=== PATIENT | female | born 1990 | race Caucasian/White ===

== ENCOUNTER 2021-06-20 23:21 | Emergency (ER) | payer BC, SELFPAY ==
[2021-06-20] MEDS ORDERED: LIDOCAINE 1% MPF 2 ML AMPULE ONE (23:50)
[2021-06-20] MEDS ORDERED: MORPHINE 4 MG/ML SYR ONE (23:51)
[2021-06-20] MEDS ORDERED: CEFTRIAXONE 1000 MG/VIAL ONE (23:51)
--- NOTE | 2021-06-21 00:47 | EDPHYS ---
Physician Documentation [facility] Name: Teressa Lopez Age: 31 yrs Sex: Female : 1990 Arrival Date: 06/20/2021 Time: 23:23 Bed 15 Private MD: ED Physician Palomo Larry HPI: 06/20 23:35 This 31 yrs old Female presents to ER via Ambulatory with complaints of Ear jmm Pain, EAR DRAINAGE, Toothache. 23:35 The patient presents with pain. Onset: The symptoms/episode began/occurred today. jmm Modifying factors: The symptoms are alleviated by nothing, the symptoms are aggravated by nothing. Associated signs and symptoms: Pertinent positives: pain, drainage. The patient has not experienced similar symptoms in the past. 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 - Social history:: Smoking status: Patient reports the use of cigarette tobacco products, smokes one-half pack cigarettes per day. - Family history:: not pertinent. - Code Status:: Full code. ROS: 23:35 Constitutional: Negative for fever, chills, and weight loss. jmm 23:35 ENT: Positive for drainage from ear(s), ear pain. 23:35 All other systems are negative. Exam: 23:35 Head/Face: atraumatic. Eyes: EOMI, no conjunctival erythema appreciated jmm 23:35 Neck: Trachea midline, Supple Chest/axilla: Normal chest wall appearance and motion. Cardiovascular: Regular rate and rhythm. No edema appreciated Respiratory: Normal respirations, no respiratory distress appreciated Abdomen/GI: Non distended, soft Back: Normal ROM Skin: General appearance color normal 23:35 Constitutional: The patient appears alert, awake, uncomfortable. 23:35 ENT: TM's: not visable. 23:35 Musculoskeletal/extremity: ROM: intact in all extremities. 23:35 Skin: Appearance: Color: normal in color. 23:35 Neuro: Motor: is normal. 23:35 Psych: Behavior/mood is pleasant, cooperative, anxious. Vital Signs: 23:34 BP 141 / 75; Pulse 95; Resp 20; Temp 98.1; Pulse Ox 100% on R/A; Weight 81.65 kg; em Height 5 ft. 8 in. (172.72 cm); Pain 05/23; 06/21 01:00 BP 121 / 81; Pulse 76; Resp 20; Temp 98.5(O); cc4 06/20 23:34 Body Mass Index 27.37 (81.65 kg, 172.72 cm) em MDM: 06/20 23:35 Patient medically screened. [facility] 06/21 00:45 Data reviewed: vital signs, nurses notes. Counseling: I had a detailed discussion with [facility] the patient and/or guardian regarding: the historical points, exam findings, and any diagnostic results supporting the discharge/admit diagnosis, the need for outpatient follow up, to return to the emergency department if symptoms worsen or persist or if there are any questions or concerns that arise at home. ED course: Patient is alert and non toxic in appearance in the ED. Advised to follow up with ENT for further evaluation. Patient understood and agrees with the plan of care. . Administered Medications: 06/20 23:50 Drug: morphine 4 mg Route: IM; Site: right gluteus; cc4 06/21 01:00 Follow up: Response: No adverse reaction; Pain is unchanged, physician notified [facility] 06/20 23:52 Drug: Rocephin (cefTRIAXone) 1 grams Route: IM; Site: left gluteus; cc4 06/21 01:00 Follow up: BP 121 / 81; Pulse 76 bpm; Resp 20 bpm; Temp 98.5 Oral cc4 01:00 Follow up: Response: No adverse reaction [facility] Disposition: 01:16 Co-signature as Attending Physician, Palomo Larry MD. [email or web address] Disposition Summary: 06/21/21 00:47 Discharge Ordered Location: Home [facility] Condition: Stable [facility] Diagnosis - Acute Otalgia [facility] Followup: [facility] - With: Private Physician - When: 2 - 3 days - Reason: Recheck today's complaints, Continuance of care, Re-evaluation by your physician Discharge Instructions: - Discharge Summary Sheet [facility] - Earache, Adult [facility] Forms: - Medication Reconciliation Form [facility] - Thank You Letter [facility] - Antibiotic Education [facility] - Prescription Opioid Use [facility] Prescriptions: - Augmentin 875-125 mg Oral Tablet - take 1 tablet by ORAL route every 12 hours for 10 days; 20 tablet; Refills: 0, [facility] Product Selection Permitted - Cortisporin-TC 3.3-3-10-0.5 mg/mL Otic Suspension - instill 4 drops by OTIC route every 6 hours; 1 bottle; Refills: 0, Product [facility] Selection Permitted - Ibuprofen 800 mg Oral Tablet - take 1 tablet by ORAL route every 8 hours As needed take with food; 30 tablet; [facility] Refills: 0, Product Selection Permitted Signatures: Riley Graham PA PA jmm Munoz, Edgar, RN RN em Palomo Larry MD MD [email or web address] Marleni Ken RN RN cc4
--- NOTE | 2021-06-21 00:47 | ER ---
Nurse's Notes [facility] Name: Teressa Lopez Age: 31 yrs Sex: Female : 1990 Arrival Date: 06/20/2021 Time: 23:23 Bed 15 Private MD: Diagnosis: Acute Otalgia Presentation: 06/20 23:34 Chief complaint: Patient states: right ear and jaw pain that started this morning, also em reports leaking in gabo. ears, denies fever. Coronavirus screen: Vaccine status: Patient reports being unvaccinated. Ebola Screen: Patient negative for fever greater than or equal to 101.5 degrees Fahrenheit, and additional compatible Ebola Virus Disease symptoms Patient denies exposure to infectious person. Patient denies travel to an Ebola-affected area in the 21 days before illness onset. No symptoms or risks identified at this time. Initial Sepsis Screen: Does the patient meet any 2 criteria? No. Patient's initial sepsis screen is negative. Does the patient have a suspected source of infection? Yes: Other: ear. Risk Assessment: Do you want to hurt yourself or someone else? Patient reports no desire to harm self or others. Onset of symptoms was June 20, 2021. 23:34 Method Of Arrival: Ambulatory em 23:34 Acuity: MARC 4 em Triage Assessment: 23:35 General: Appears in no apparent distress. uncomfortable, Behavior is cooperative, em anxious. Pain: Complains of pain in right jaw and right ear. EENT: Ear canal swelling noted inside canal . 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 - Social history:: Smoking status: Patient reports the use of cigarette tobacco products, smokes one-half pack cigarettes per day. - Family history:: not pertinent. - Code Status:: Full code. Screenin:45 Abuse screen: Denies threats or abuse. Nutritional screening: No deficits noted. cc4 Tuberculosis screening: No symptoms or risk factors identified. Fall Risk None identified. Assessment: 23:45 General: Appears distressed, uncomfortable, Behavior is calm, cooperative. Pain: cc4 Complains of pain in right ear and right jaw Pain currently is 10 out of 10 on a pain scale. at worst was 10 out of 10 on a pain scale. Quality of pain is described as aching, tender, throbbing, Pain began 'All day" Is continuous. Neuro: No deficits noted. Level of Consciousness is awake, alert, obeys commands, Oriented to person, place, time, situation. Cardiovascular: No deficits noted. Heart tones S1 S2. Respiratory: No deficits noted. Airway is patent Breath sounds are clear bilaterally. GI: No deficits noted. No signs and/or symptoms were reported involving the gastrointestinal system. Abdomen is non-distended, Bowel sounds present X 4 quads. Abd is soft and non tender X 4 quads. : No deficits noted. No signs and/or symptoms were reported regarding the genitourinary system. EENT: Edema noted right ear with pus noted draining from right ear canal.. Derm: No deficits noted. Skin is intact. Musculoskeletal: No deficits noted. Capillary refill < 3 seconds, Range of motion: intact in all extremities. 23:50 Reassessment: No changes from previously documented assessment. Morphine 4 mg given IM; cc4 Rocephin 1 g given as ordered, mark. well. 06/21 00:16 Reassessment: No changes from previously documented assessment. Morphine 4 mg given IM cc4 RUOQ; Rocephin 1 g given IM LUOQ, mark. well. 00:30 Reassessment: Patient appears in no apparent distress at this time. Resting quietly cc4 with eyes closed; significant other sitting \\T\\ bedside; NAD. Vital Signs: 06/20 23:34 BP 141 / 75; Pulse 95; Resp 20; Temp 98.1; Pulse Ox 100% on R/A; Weight 81.65 kg; em Height 5 ft. 8 in. (172.72 cm); Pain 1010; 06/21 01:00 BP 121 / 81; Pulse 76; Resp 20; Temp 98.5(O); cc4 06/20 23:34 Body Mass Index 27.37 (81.65 kg, 172.72 cm) em ED Course: 06/20 23:23 Patient arrived in ED. cf2 23:24 Riley Graham PA is PHCP. jmm 23:24 Palomo Larry MD is Attending Physician. [facility] 23:35 Triage completed. em 23:35 Arm band placed on. em 23:45 Patient has correct armband on for positive identification. Bed in low position. Call cc4 light in reach. Side rails up X2. 23:49 Marleni Ken, RN is Primary Nurse. cc4 06/21 01:00 No provider procedures requiring assistance completed. cc4 01:00 Patient did not have IV access during this emergency room visit. cc4 Administered Medications: 06/20 23:50 Drug: morphine 4 mg Route: IM; Site: right gluteus; cc4 06/21 01:00 Follow up: Response: No adverse reaction; Pain is unchanged, physician notified cc4 06/20 23:52 Drug: Rocephin (cefTRIAXone) 1 grams Route: IM; Site: left gluteus; cc4 06/21 01:00 Follow up: BP 121 / 81; Pulse 76 bpm; Resp 20 bpm; Temp 98.5 Oral cc4 01:00 Follow up: Response: No adverse reaction cc4 Outcome: 00:47 Discharge ordered by . [facility] 01:00 Discharged to home with significant other. cc4 01:00 Condition: stable 01:00 Discharge instructions given to patient, Instructed on discharge instructions, follow up and referral plans. medication usage, Demonstrated understanding of instructions, follow-up care, medications. 01:05 Patient left the ED. cc4 Signatures: Riley Graham PA PA jmm Munoz, Edgar, RN KETURAH Mansoor aMnn 2 Marleni Ken, KETURAH RN [facility]
[2021-06-21 01:35] VITALS: BP 141/75; TEMP 98.1; O2SAT 100
--- OUTSIDE RECORDS SUMMARY | 2021-06-26 16:03 | XMS REPORT | Continuity of Care Document ---
:1990 Author Organization [facility] t Address [address] [place] [address] Care Team Providers Name Role Phone PCP, PATIENT DOES NOT HAVE A Primary Care Physician Unavaila ble HEAD, S Attending Clinician Unavailable Head PAC, S Attending Clinician Doctor Unassigned, Name Attending Clinician Unavailable Jony REBOLLAR Attending Clinician Unavailable Caden PARR Attending Clinician Payers Payer Name Policy Type Policy Number Effective Date Expiration Date S ource Advance Directives Directive Decision Effective Termination Comments Source Date Date Healthcare Agents on N/A Univ ersity FileNameRelationshipHealthcare of [place] Agent Medical RelationshipCommunicationSMuhlenberg Community [facility] UribeSiSt[facility] Care [phone] (Mobile) Problems Condition Condition Condition Status Onset Resolution Last Treating Co mments Source Name Details Category Date Date Treatment Clinician Date Cervical Cervical Disease Active Unive rs high risk high risk 3-30 ity of human human 00:00: [place] papillomav papillomav 00 Me dical irus (HPV) irus (HPV) Br anch DNA test DNA test positive positive Atypical Atypical Disease Active Overview: Un leslie squamous squamous 3-29 Formattin ity of cell cell 00:00: g of this [place] changes of changes of 00 note Me dical undetermin undetermin might be Branch ed ed different significan significan from the ce (ASCUS) ce (ASCUS) original. on vaginal on vaginal ASCUS on cytology cytology 10/2017 pap smear, awaiting HPV results. Overweight Overweight Disease Active U nivers 3-22 ity of 00:00: [place] 00 Medical Branch BMI BMI Disease Active Univers 27.0-27.9, 27.0-27.9, 3-22 it y of adult adult 00:00: [place] [facility] Disease Active U nivers care and care and 3-06 ity of examin[place] exam[place] Medical immediatel immediatel Br anch y after y after delivery delivery Obstetrica Obstetrica Disease Active U nivers l l 2-07 ity of laceration laceration 00:[place] Medical Branch Reactive Reactive Disease Active Overview: Un leslie depression depression 206 Formattin ity of 00:00: g of this [place] note Medical might be Branch different from the original. Patient requestin g medicatio n for depressio n prior to going home. Encounter Encounter Disease Active Overview: Univers for for 206 Formattin ity of initial initial 00:00: g of this [place] prescripti prescripti 00 note Me dical on of on of might be Branch injectable injectable different contracept contracept from the boris boris original. Wants depoprove ra prior to leaving hospital. Chlamydia Chlamydia Disease Active Uni vers 8-22 ity of 00:00: [place] [facility] Trauma Trauma Disease Active Univers 8-21 ity of 00:00: [place] [address] Medical Branch Allergies, Adverse Reactions, Alerts Allergy Allergy Status Severity Reaction(s) Onset Inactive Treating Comm ents Source Name Type Date Date Clinician NO KNOWN Drug Active Univers ALLERGIE Class ity of S [facility] Social History Social Habit Start Date Stop Date Quantity Comments Source Exposure to Not sure University of SARS-CoV-2 (event) [place] [facility] History SDOH University o f Alcohol Frequency [facility] edical Branch History [facility] University o f Alcohol Std Drinks [place] [facility] History SDSC University o f Alcohol Binge [place] Medic al Branch Alcohol intake 2017-11-10 2017-11-10 Current drinker Unive rsity of 00:00:00 00:00:00 of alcohol [place] Medical (finding) Branch Alcohol Comment 2017-10-17 2017-10-17 socially Universit y of 00:00:00 00:00:00 [place] [facility] Cigarettes smoked 2017-10-17 2017-10-17 Univers ity of current (pack per 00:00:00 00:00:00 [facility] ) - Reported Branch Tobacco use and 2017-10-17 2017-10-17 Never used Universit y of exposure 00:00:00 00:00:00 [facility] Tobacco Comment 2017-10-17 2017-10-17 smokes 5-6 x per Uni versity of 00:00:00 00:00:00 day [facility] History of tobacco 2016-08-14 2017-03-27 Cigarette Smoker University of use 00:00:00 00:00:00 [facility] Sex Ass[birth year] At [birth year] Universit y of 00:00:00 00:00:00 [facility] Smoking Status Start Date Stop Date Source Current every day smoker 2017-10-17 00:00:00 Uni versity of [facility] Medications Ordered Filled Start Stop Current Ordering Indication Dosage Frequency Signature Comments Components Source Medication Medication Date Date Medication? Clinician (SIG) Name Name ofloxacin 2020-08 Yes [id number] 5[drp] Place 5 Univers 0.3 % otic 1-10 19958 Drops in ity of drops 00:00: both ears [place] 00 2 (two) Medical times [place] daily. traMADoL 50 2020-08 Yes [id number] 50mg Take 1 Univ ers mg tablet 1-10 tablet by ity o f 00:00: mouth [place] [address] every 6 Medical (six) Branch hours as needed for Pain (scale 7-10). Indication s: acute pain HYDROcodone 2020- No 1{tbl} 1 tablet, Univers -acetaminop 04-12 Oral, ONCE i ty of hen (NORCO) 00:15: 23:13 NOW, 1 [place] as 10-325 mg 00 :00 dose, Sat Medic al tablet 1 04/11/20 at [facility] h tablet 191, TASH ketorolac 2020- No 60mg 60 mg, Unive rs (TORADOL) 04-12 Intramuscu ity of injection 00:15: 23:13 lar, ONCE, [place] 60 mg 00 :00 1 dose, Medical Sat Branch 04/11/20 at 1915, TASH
Fa culty member approving Restricted medication : EMERGENCY ROOM, ibuprofen Yes [id number] 800mg Take 1 Univers 800 mg 8-29 tablet by ity of tablet 00:00: mouth [place] 00 every 8 Medical (eight) Branch hours as needed for Pain (scale 4-6). methocarbam 2020-0 Yes [id number] 750mg Take 1 Univers oL 750 mg 8-29 tablet by ity o f tablet 00:00: mouth 4 00 (four) Medical times Branch daily as needed (muscle spasm). ibuprofen 2020-0 Yes [id number] 800mg Take 1 Univers 800 mg 8-29 tablet by ity of tablet 00:00: mouth [place] 00 every 8 Medical (eight) Branch hours as needed for Pain (scale 4-6). methocarbam 2020-0 Yes [id number] 750mg Take 1 Univers oL 750 mg 8-29 tablet by ity o f tablet 00:00: mouth 00 (four) Medical times Branch daily as needed (muscle spasm). ibuprofen 2020-0 Yes [id number] 800mg Take 1 Univers 800 mg 8-29 tablet by ity of tablet 00:00: mouth [place] 00 every 8 Medical (eight) Branch hours as needed for Pain (scale 4-6). methocarbam 2020-0 Yes [id number] 750mg Take 1 Univers oL 750 mg 8-29 tablet by ity o f tablet 00:00: mouth 00 (four) Medical times Branch daily as needed (muscle spasm). ibuprofen 2020-0 Yes [id number] 800mg Take 1 Univers 800 mg 8-29 tablet by ity of tablet 00:00: mouth [place] 00 every 8 Medical (eight) Branch hours as needed for Pain (scale 4-6). methocarbam 2020-0 Yes [id number] 750mg Take 1 Univers oL 750 mg 8-29 tablet by ity o f tablet 00:00: mouth 4 (four) Medical times Branch daily as needed (muscle spasm). acetaminoph 2020-0 2020- No 4647 1{tbl} Take 1 U nivers en-codeine 8-29 - tablet by ity of 300-30 mg 00:00: 04:59 mouth [place] tablet 00 :00 every 6 Medical (six) Branch hours as needed for Pain (scale 7-10) for up to 7 days. Indication s: acute pain ibuprofen 2017-0 Yes 600mg Take 1 Unive rs 600 mg 2-07 tablet by ity of tablet 00:00: mouth [place] 00 every 6 Medical (six) Branch hours as needed for Pain (scale 1-3) or Pain (scale 4-6) (Pain). Take with food or milk. ibuprofen 2018-0 Yes 600mg Take 1 Unive rs 600 mg 2-07 tablet by ity of tablet 00:00: mouth [place] 00 every 6 Medical (six) Branch hours as needed for Pain (scale 1-3) or Pain (scale 4-6) (Pain). Take with food or milk. ibuprofen 2018-0 Yes 600mg Take 1 Unive rs 600 mg 2-07 tablet by ity of tablet 00:00: mouth [place] 00 every 6 Medical (six) Branch hours as needed for Pain (scale 1-3) or Pain (scale 4-6) (Pain). Take with food or milk. ibuprofen 2018-0 Yes 600mg Take 1 Unive rs 600 mg 2-07 tablet by ity of tablet 00:00: mouth [place] 00 every 6 Medical (six) Branch hours as needed for Pain (scale 1-3) or Pain (scale 4-6) (Pain). Take with food or milk. Immunizations Ordered Filled Immunization Date Status Comments [facility] e Immunization Name Name [facility] 2017-06-26 Completed University 00:00:00 [facility] 2017-06-26 Completed University of 00:00:00 [facility] 2017-06-26 Completed University of 00:00:00 [facility] 2017-06-26 Completed [facility] 00:00:00 [facility] Vital Signs Vital Name Observation Time Observation Value Comments Source Heart rate 2021-06-23 06:20:00 96 /min [facility] Body temperature 2021-06-23 06:20:00 37.39 [place] [facility] Respiratory rate 2021-06-23 06:20:00 19 /min [facility] Oxygen saturation in 2021-06-23 06:20:00 99 /min [facility] Arterial blood by [facility] Pulse oximetry Branch Systolic blood 2021-06-23 06:20:00 137 mm[Hg] Univer sity of pressure [facility] Diastolic blood 2021-06-23 06:20:00 86 mm[Hg] Unive rsity of pressure [facility] Systolic blood 2020-04-11 22:45:00 131 mm[Hg] Univer sity of pressure [facility] Diastolic blood 2020-04-11 22:45:00 83 mm[Hg] Unive rsity pressure [facility] Heart rate 2020-04-11 22:45:00 77 /min [facility] Body temperature 2020-04-11 22:45:00 37.06 [place] [facility] Respiratory rate 2020-04-11 22:45:00 16 /min [facility] Body weight 2020-04-11 22:45:00 81.647 kg Universi ty [facility] BMI 2020-04-11 22:45:00 28.19 kg/m2 [facility] Oxygen saturation in 2020-04-11 22:45:00 99 /min [facility] Arterial blood by [facility] Pulse oximetry [place] Procedures Procedure Date / Time Performed Performing Clinician [facility] e NOTICE OF PRIVACY 2021-06-23 06:14:12 Doctor Unassigned, No [facility] Name Medical Branch CONSENT/REFUSAL FOR 2021-06-23 06:13:45 [facility] Unassigned, [facility] TREATMENT XR LUMBAR SPINE 3 VW 2020-04-11 23:32:14 Ghislaine Negreet [facility] XR SPINE THORACIC 2 2020-04-11 23:32:14 Ghislaine Negrete [facility] URINALYSIS 2020-04-11 23:12:00 Ghislaine Negrete [facility] POCT TEST 2020-04-11 23:10:00 Ghislaine Negrete [facility] NOTICE OF PRIVACY 2020-04-11 22:38:11 Doctor Unassigned, No Univ ersity of [facility] Name Medical [place] Encounters Start End Encounter Admission Attending Care Care Encounter Source Date/Time Date/Time Type Type Clinicians Facility Department ID 2021-06-11 Emergency [facility] [id number] Univers 14:49:41 [facility] 2021-06-23 2021-06-23 Emergency X MELODIE HEAD ERT [id number] Univers 00:28:00 [facility]:45:[facility]-23 2021-06-23 Chintan Head NHCHATA [id number] [facility] 00:28:00 01:45:00 Anisa ODELL [id number] i ty of [place] 4.2.7.2.686 [facility] [id number] [place] [id number] [place] 2021-06-23 2021-06-23 Orders Doctor SHANNON [id number] Univers 00:00:00 00:00:00 Only Unassigned, LUISITO [id number] ity of [place] [facility] 4.2.7.2.686 [place] as [id number] [facility] 009 Branch 2021-06-22 2021-06-22 Nurse SHANNON Borges [id number] Univers 00:00:00 00:00:00 Triage Madeleine JORGE [id number] [facility] 4.2.7.2.686 [place] [id number] [facility] 019 [place] 2020-04-11 2020-04-11 Emergency [facility] [id number] [facility] 17:46:00 19:23:00 Ghislaine Odell [id number] i ty of [place] 4.2.7.2.686 [facility] [id number] [address] Results Test Description Test Time Test Comments Results Result Comments Source Urinalysis 2020-04-11 23:34:00 Test Item Value Reference Range Interpretation Comme nts APPEARANCE (test code = Clear Clear [id number]) COLOR (test code = 4016760502) Yellow Yellow PH (test code = 1370716541) 4.8-8.0 SP GRAVITY (test code = 1.003-1.030 3062285108) GLU U QUAL (test code = Normal Normal 6421270287) BLOOD (test code = 8606838971) 1+ Negative A KETONES (test code = 2136524820) Negative Negative PROTEIN (test code = 2887-8) Negative Negative UROBILIN (test code = 2.0 mg/dL Normal A 4175038991) BILIRUBIN (test code = Negative Negative 0047094149) NITRITE (test code = 2062045927) Negative Negative LEUK NATALIE (test code = 75/uL Negative A 8580051203) RBC/HPF (test code = 7882820418) See_Comment H [Automated message] The system which ge nerated this result transmit karey reference range: 0 - 3 HP F. The reference range was not used to interpret th is result as normal/abnormal . WBC/HPF (test code = 4582978221) See_Comment [Automated message] The system which ge nerated this result transmit karey reference range: 0 - 5 HP F. The reference range was not used to interpret th is result as normal/abnormal . BACTERIA (test code = Few Negative A 0807215682) MUCOUS (test code = 3085176595) Slight Negative LPF A SQ EPITH (test code = HPF 5624004878) Lab Interpretation (test code = Abnormal 14791-0) [id number] 23:10:00 Test Item Value Reference Range Interpretation Comments POCT PREG (test code = 1605) negative On board controls acceptable with present C Line (test code = 3574) POCT PREG LOT # (test code = 3575) [id number] POCT PREG TEST DATE (test code = 357) Lab Interpretation (test code = Normal 99143-5) [facility]
== END 2021-06-21 01:05 | disposition home or self-care (01) ==
LOC: ER 23:21
DX: H92.03 Otalgia, bilateral (principal); F17.210 Nicotine dependence, cigarettes, uncomplicated
CPT/HCPCS: 96372; 99283

== ENCOUNTER 2022-07-10 14:27 | Emergency (ER) | payer SELFPAY ==
--- OUTSIDE RECORDS SUMMARY | 2022-07-10 14:30 | XMS REPORT | Continuity of Care Document ---
:[address] [facility] [place] [place] Address [address] [place] [address] Care Team Providers Name Role Phone PCP, PATIENT DOES NOT HAVE A Primary Care Physician Unavaila ANISA Almazan Attending Clinician Unavailable Anisa Matias Attending Clinician Doctor Unassigned, [place] Attending Clinician Unavailable Madeleine Borges RN Attending Clinician Unavailable Ghislaine [place] Attending Clinician Payers Payer Name Policy Type Policy Number Effective Date Expiration Date S ource Problems Condition Condition Condition Status Onset Resolution Last Treating Co mments Source Name Details Category Date Date Treatment Clinician Date Cervical Cervical Disease Active Unive rs high risk high risk 3-30 ity of human human 00:00: [place] papillomav papillomav 00 Me dical irus (HPV) irus (HPV) Br anch DNA test DNA test positive positive Atypical Atypical Disease Active Overview: Un leslie squamous squamous 11-09 Formattin ity of cell cell 00:00: g of this [place] changes of changes of 00 note Me dical undetermin undetermin might be Branch ed ed different significan significan from the ce (ASCUS) ce (ASCUS) original. on vaginal on vaginal ASCUS on cytology cytology 10/2017 pap smear, awaiting HPV results. Overweight Overweight Disease Active U nivers 3-22 ity of 00:00: [address] BMI BMI Disease Active Univers 27.0-27.9, 27.0-27.9, 3-22 it y of adult adult 00:00: [place] 00 Medical Branch Disease Active U nivers care and care and 3-06 ity of examin[place] exam[place] 00 Medical immediatel immediatel Br anch y after y after delivery delivery Obstetrica Obstetrica Disease Active U nivers l l 2-07 ity of laceration [place] 00 Medical Branch Reactive Reactive Disease Active Overview: Un leslie depression depression 09-19 Formattin ity of 00:00: g of this [place] 00 note Medical might be Branch different from the original. Patient requestin g medicatio n for depressio n prior to going home. Encounter Encounter Disease Active Overview: Univers for for 206 Formattin ity of initial initial 00:00: g of this [place] prescripti prescripti 00 note Me dical on of on of might be Branch injectable injectable different contracept contracept from the boris boris original. Wants depoprove ra prior to leaving hospital. Chlamydia Chlamydia Disease Active Uni vers 8-22 ity of 00:00: [place] 00 Medical Branch Trauma Trauma Disease Active Univers 8-21 ity of 00:00: [place] 00 Medical Branch Allergies, Adverse Reactions, Alerts Allergy Allergy Status Severity Reaction(s) Onset Inactive Treating Comm ents Source Name Type Date Date Clinician NO KNOWN Drug Active Univers ALLERGIE Class ity of S [facility] Social History Social Habit Start Date Stop Date Quantity Comments Source Exposure to Not sure [place] of SARS-CoV-2 (event) [place] [facility] History [facility] University o f Alcohol Frequency [facility] Branch History [facility] University o f Alcohol Std Drinks [facility] Branch History [facility] University o f Alcohol Binge [place] Medic al [facility] Alcohol intake 2017-11-10 2017-11-10 Current drinker Unive rsity of 00:00:00 00:00:00 of alcohol [place] Medical (finding) Branch Alcohol Comment 2017-10-17 2017-10-17 socially Universit y of 00:00:00 00:00:00 [facility] Branch Cigarettes smoked 2017-10-17 2017-10-17 Univers ity of current (pack per 00:00:00 00:00:00 [facility] ) - Reported Branch Tobacco use and 2017-10-17 2017-10-17 Never used Universit y of exposure 00:00:00 00:00:[address] [facility] Tobacco Comment 2017-10-17 2017-10-17 smokes 5-6 x per Uni versity of 00:00:00 00:00:[address] [facility] History of tobacco 2016-08-14 2017-03-27 Cigarette Smoker University of use 00:00:00 00:00:[address] [facility] Sex Ass[birth year] At [birth year] Universit y of 00:00:00 00:00:[address] [facility] Smoking Status Start Date Stop Date Source Current every day smoker 2017-10-17 00:00:[address] Uni [address] [facility] Medications Ordered Filled Start Stop Current Ordering Indication Dosage Frequency Signature Comments Components Source Medication Medication Date Date Medication? Clinician (SIG) Name Name ofloxacin 2020-08 Yes [id number] 5[drp] Place 5 Univers 0.3 % otic 1-10 02012 Drops in ity of drops 00:00: both ears 00 2 (two) Medical times Branch daily. traMADoL 50 2020-08 Yes [id number] 50mg Take 1 Univ ers mg tablet 1-10 tablet by ity o f 00:00: mouth [place] every 6 Medical (six) Branch hours as needed for Pain (scale 7-10). Indication s: acute pain HYDROcodone 2019-0 2020- No 1{tbl} 1 tablet, Univers -acetaminop 04-12 Oral, ONCE i ty of hen (NORCO) 00:15: 23:13 NOW, 1 Venutra as 10-325 mg 00 :00 dose, Sat Medic al tablet 1 04/11/[address] [facility] h tablet 1914, TASH ketorolac 0 2019- No 60mg 60 mg, Unive rs (TORADOL) 04-12 Intramuscu ity of injection 00:15: 23:13 lar, ONCE, [place] 60 mg 00 :00 1 dose, Medical Sat Branch 04/11/20 at 1915, TASH
Fa culty member approving Restricted medication : EMERGENCY ROOM, ibuprofen 2019-0 Yes [id number] 800mg Take 1 Univers 800 mg 8-29 tablet by ity of tablet 00:00: mouth 00 every 8 Medical (eight) Branch hours as needed for Pain (scale 4-6). methocarbam 2020-0 Yes [id number] 750mg Take 1 Univers oL 750 mg 8-29 tablet by ity o f tablet 00:00: mouth 4 00 (four) Medical times Branch daily as needed (muscle spasm). ibuprofen 2020-0 Yes [id number] 800mg Take 1 Univers 800 mg 8-29 tablet by ity of tablet 00:00: mouth [place] 00 every 8 Medical (eight) Branch hours as needed for Pain (scale 4-6). methocarbam 2020-0 Yes [id number] 750mg Take 1 Univers oL 750 mg 8-29 tablet by ity o f tablet 00:00: mouth 4 00 (four) Medical times Branch daily as needed (muscle spasm). ibuprofen 2020-0 Yes [id number] 800mg Take 1 Univers 800 mg 8-29 tablet by ity of tablet 00:00: mouth [place] 00 every 8 Medical (eight) Branch hours as needed for Pain (scale 4-6). methocarbam 2020-0 Yes [id number] 750mg Take 1 Univers oL 750 mg 8-29 tablet by ity o f tablet 00:00: mouth 00 (four) Medical times Branch daily as needed (muscle spasm). ibuprofen 2020-0 Yes [id number] 800mg Take 1 Univers 800 mg 8-29 tablet by ity of tablet 00:00: mouth [place] 00 every 8 Medical (eight) Branch hours as needed for Pain (scale 4-6). methocarbam 2020-0 Yes [id number] 750mg Take 1 Univers oL 750 mg 8-29 tablet by ity o f tablet 00:00: mouth (four) Medical times Branch daily as needed (muscle spasm). acetaminoph 2019-0 2020- No 4647 1{tbl} Take 1 U nivers en-codeine 04-11 tablet by ity of 300-30 mg 00:00: 04:59 mouth [place] tablet 00 :00 every 6 Medical (six) Branch hours as needed for Pain (scale 7-10) for up to 7 days. Indication s: acute pain ibuprofen Yes 600mg Take 1 Unive rs 600 mg 2-07 tablet by ity of tablet 00:00: mouth [place] 00 every 6 Medical (six) Branch hours as needed for Pain (scale 1-3) or Pain (scale 4-6) (Pain). Take with food or milk. ibuprofen Yes 600mg Take 1 Unive rs 600 mg 2-07 tablet by ity of tablet 00:00: mouth [place] 00 every 6 Medical (six) Branch hours as needed for Pain (scale 1-3) or Pain (scale 4-6) (Pain). Take with food or milk. ibuprofen 2018-0 Yes 600mg Take 1 Unive rs 600 mg 2-07 tablet by ity of tablet 00:00: mouth [place] 00 every 6 Medical (six) Branch hours as needed for Pain (scale 1-3) or Pain (scale 4-6) (Pain). Take with food or milk. ibuprofen 2018-0 Yes 600mg Take 1 Unive rs 600 mg 2-07 tablet by ity of tablet 00:00: mouth [place] 00 every 6 Medical (six) Branch hours as needed for Pain (scale 1-3) or Pain (scale 4-6) (Pain). Take with food or milk. Immunizations Ordered Filled Immunization Date Status Comments [facility] e Immunization Name Name [facility] 2017-06-26 Completed [facility] 00:00:00 [facility] 2017-06-26 Completed University 00:00:00 [facility] 2017-06-26 Completed University of 00:00:00 [facility] 2017-06-26 Completed [facility] 00:00:[address] [facility] Vital Signs Vital Name Observation Time Observation Value Comments Source Heart rate 2021-06-23 06:20:00 96 /min [facility] Body temperature 2021-06-23 06:20:00 37.39 [facility] Respiratory rate 2021-06-23 06:20:00 19 /min [facility] Oxygen saturation in 2021-06-23 06:20:00 99 /min [facility] Arterial blood by [facility] Pulse oximetry Branch Systolic blood 2021-06-23 06:20:00 137 mm[Hg] Univer sity of pressure [facility] Diastolic blood 2021-06-23 06:20:00 86 mm[Hg] Unive rsity of pressure [facility] Systolic blood 2020-04-11 22:45:00 131 mm[Hg] Univer sity of pressure [facility] Diastolic blood 2020-04-11 22:45:00 83 mm[Hg] Unive rsity of [facility] Heart rate 2020-04-11 22:45:00 77 /min Universi [facility] Body temperature 2020-04-11 22:45:00 37.06 [facility] Respiratory rate 2020-04-11 22:45:00 16 /min [facility] Body weight 2020-04-11 22:45:00 81.647 kg Universi ty [facility] BMI 2020-04-11 22:45:00 28.19 kg/m2 Universi [facility] Oxygen saturation in 2020-04-11 22:45:00 99 /min [facility] Arterial blood by [facility] Pulse oximetry Branch Procedures Procedure Date / Time Performed Performing Clinician Sour e NOTICE OF PRIVACY 2021-06-23 06:14:12 Doctor Unassigned, No [facility] Name Medical [place] CONSENT/REFUSAL FOR 2021-06-23 06:13:45 Doctor Unassigned, No [facility] DIAGNOSIS AND Name [facility] TREATMENT XR LUMBAR SPINE 3 VW 2020-04-11 23:32:14 Ghislaine Negrete [facility] XR SPINE THORACIC 2 2020-04-11 23:32:14 Ghislaine Negrete [facility] URINALYSIS 2020-04-11 23:12:00 Ghislaine Negrete [facility] POCT TEST 2020-04-11 23:10:[address] [facility] NOTICE OF PRIVACY 2020-04-11 22:38:11 Doctor Unassigned, No [facility] Name [facility] Encounters Start End Encounter Admission Attending Care Care Encounter Source Date/Time Date/Time Type Type Clinicians Facility Department ID 2021-06-11 Emergency [facility] [id number] Univers 14:49:41 [facility] 2021-06-23 2021-06-23 Emergency X SONIDO COCHATA ERT [id number] Univers 00:28:00 01:45:00 ANISA [facility] 2021-06-23 2021-06-23 Emergency Sonido [facility] [id number] Univers 00:28:00 01:45:00 Anisa ODELL [id number] ibeth [place] [id number] [facility] [id number] [place] [id number] [place] 2021-06-23 2021-06-23 Orders Doctor SHANNON [id number] Univers 00:00:00 00:00:00 Only Unassigned, LUISITO [id number] ity of [place] [id number] [place] [id number] [facility] 009 Branch 2021-06-22 2021-06-22 Nurse SHANNON Borges [id number] Univers 00:00:00 00:00:00 Triage Madeleine JORGE [id number] it y of [facility] [id number] [place] as [id number] [facility] 019 [place] 2020-04-11 2020-04-11 Emergency Negrete, [facility] [id number] Univers 17:46:00 19:23:00 Ghislaine Odell [id number] i ty [facility] [id number] [facility] [id number] [address] Results Test Description Test Time Test Comments Results Result Comments Source Urinalysis 2020-04-11 23:34:00 Test Item Value Reference Range Interpretation Comme nts APPEARANCE (test code = Clear Clear 4714985201) COLOR (test code = 7178382263) Yellow Yellow PH (test code = 5865279832) 4.8-8.0 SP GRAVITY (test code = 1.003-1.030 1405182815) GLU U QUAL (test code = Normal Normal 6851112370) BLOOD (test code = 3686451388) 1+ Negative A KETONES (test code = 1119249705) Negative Negative PROTEIN (test code = 2887-8) Negative Negative UROBILIN (test code = 2.0 mg/dL Normal A 3162596024) BILIRUBIN (test code = Negative Negative 2412480754) NITRITE (test code = 0004679440) Negative Negative LEUK NATALIE (test code = 75/uL Negative A 0337111385) RBC/HPF (test code = 0191001912) See_Comment H [Automated message] The system which ge nerated this result transmit karey reference range: 0 - 3 HP F. The reference range was not used to interpret th is result as normal/abnormal . WBC/HPF (test code = 8321295744) See_Comment [Automated message] The system which ge nerated this result transmit karey reference range: 0 - 5 HP F. The reference range was not used to interpret th is result as normal/abnormal . BACTERIA (test code = Few Negative A 1828981040) MUCOUS (test code = 4646611477) Slight Negative LPF A SQ EPITH (test code = HPF 6864959789) Lab Interpretation (test code = Abnormal 46606-5) [facility] [id number] 23:10:00 Test Item Value Reference Range Interpretation Comments POCT PREG (test code = 1605) negative On board controls acceptable with present C Line (test code = 3574) POCT PREG LOT # (test code = 3575) [id number] POCT PREG TEST DATE (test code = 3576) Lab Interpretation (test code = Normal 07112-0) [facility]
[2022-07-10] MEDS ORDERED: TETANUS & DIPHTHERIA TOX,ADULT 0.5 ML VIAL ONE (15:03)
[2022-07-10] MEDS ORDERED: LIDOCAINE 1% 20 ML MDV ONE (15:03)
[2022-07-10] MEDS ORDERED: DOXYCYCLINE 100 MG CAP PO ONE (16:00)
[2022-07-10] MEDS ORDERED: AMOX/K CLAV 875 MG TAB ONE (16:00)
--- NOTE | 2022-07-10 16:10 | EDPHYS ---
Physician Documentation [facility] Name: Teressa Lopez Age: 32 yrs Sex: Female : 1990 Arrival Date: 07/10/2022 Time: 14:40 Bed 9 Private MD: ED Physician Cristo Dos Santos HPI: 07/10 14:53 This 32 yrs old Female presents to ER via Ambulatory with complaints of Laceration To [facility] Foot. 14:53 Onset: The symptoms/episode began/occurred acutely. This is a 32 year old female with a [facility] history of anxiety that presents to the ED with complaints of a laceration to the left foot. Patient states she was walking barefoot and cut by the leaf of a plant. Patient is not utd on tetanus immunizations. . 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 Last tetanus immunization: unknown. - Social history:: Smoking status: Patient reports the use of cigarette tobacco products, smokes one-half pack cigarettes per day. ROS: 14:53 Constitutional: Negative for fever, chills, and weight loss, Cardiovascular: Negative jmm for chest pain, palpitations, and edema, Respiratory: Negative for shortness of breath, cough, wheezing, and pleuritic chest pain. 14:53 Skin: Positive for laceration(s). 14:53 All other systems are negative. Exam: 14:53 Constitutional: This is a well developed, well nourished patient who is awake, alert, jmm and in no acute distress. Head/Face: atraumatic. Eyes: EOMI, no conjunctival erythema appreciated ENT: Moist Mucus Membranes Neck: Trachea midline, Supple Chest/axilla: Normal chest wall appearance and motion. Cardiovascular: Regular rate and rhythm. No edema appreciated Respiratory: Normal respirations, no respiratory distress appreciated Abdomen/GI: Non distended Back: Normal ROM 14:53 Skin: 2cm laceration noted to the 1st web space of the left foot, mild bleeding appreciated. 14:53 Neuro: Orientation: is normal, Mentation: is normal, Memory: is normal. Vital Signs: 14:51 BP 125 / 83; Pulse 74; Resp 20; Temp 99.0; Pulse Ox 96% ; Weight 81.65 kg; Height 5 ft. kb3 8 in. (172.72 cm); Pain 7/10; 14:51 Body Mass Index 27.37 (81.65 kg, 172.72 cm) kb3 Laceration: 18:06 Wound Repair of 2cm ( 0.8in ) subcutaneous laceration to left first toe. Distal jmm neuro/vascular/tendon intact. Anesthesia: Local anesthetic administered with 5 mls of 1% lidocaine. Wound prep: Simple cleansing with hibiclenz, Extensive cleansing, Wound irrigation. Skin closed with 3 5-0 Prolene using simple sutures and sterile technique. Patient tolerated well. MDM: 14:53 Patient medically screened. [facility] 16:08 Data reviewed: vital signs, nurses notes. Counseling: I had a detailed discussion with nicanor the patient and/or guardian regarding: the historical points, exam findings, and any diagnostic results supporting the discharge/admit diagnosis, the need for outpatient follow up, to return to the emergency department if symptoms worsen or persist or if there are any questions or concerns that arise at home. 18:08 ED course: Patient given wound infection return precautions. Patient understood and nicanor agrees with the plan of care. . 07/10 15:33 Order name: [facility]. Order: eugenia tape great and 2nd toe [facility] Administered Medications: 15:06 Drug: Tetanus-Diphtheria Toxoid Adult 0.5 ml {Assistant General Manager: Trendabl. Exp: hb 12/18/2023. Lot #: [id number]. } Route: IM; Site: right deltoid; 15:40 Follow up: Response: No adverse reaction hb 15:11 Drug: Lidocaine (1 %) 20 ml {Note: Administered by DEDRICK Lin.} Volume: 20 ml; Route: hb Infiltration; 16:00 Follow up: Response: No adverse reaction hb 16:02 Drug: Augmentin (Amoxicillin-Clavulanate) 875 mg Route: PO; jl7 16:20 Follow up: Response: Medication administered at discharge. hb 16:02 Drug: Doxycycline 100 mg Route: PO; jl7 16:20 Follow up: Response: Medication administered at discharge. Disposition: 17:13 Co-signature as Attending Physician, Cristo Dos Santos DO I was immediately available on-site ms3 in the Emergency Department for consultation in the care of the patient. Disposition Summary: 07/10/22 16:09 Discharge Ordered Location: Home [facility] Condition: Stable [facility] Diagnosis - Cutaneous Laceration of the Foot [facility] Followup: [facility] - With: Private Physician - When: 10 - 14 days - Reason: Recheck today's complaints, Continuance of care, Staple/Suture removal, Re-evaluation by your physician Discharge Instructions: - Discharge Summary Sheet [facility] - Laceration Care, Adult [facility] Forms: - Medication Reconciliation Form [facility] - Thank You Letter [facility] - Antibiotic Education [facility] - Prescription Opioid Use [facility] Prescriptions: - Augmentin 875-125 mg Oral Tablet - take 1 tablet by ORAL route every 12 hours for 10 days; 20 tablet; Refills: 0, [facility] Product Selection Permitted - Doxycycline Hyclate 100 mg Oral Tablet - take 1 tablet by ORAL route every 12 hours; 20 tablet; Refills: 0, Product [facility] Selection Permitted Signatures: Riley Graham PA PA [facility] Iliana Munguia, RN RN Yamileth Yo RN RN jl7 Cristo Dos Santos DO DO ms3 Zoë Lira, RN RN kb3
--- NOTE | 2022-07-10 16:10 | ER ---
Nurse's Notes [facility] Name: Teressa Lopez Age: 32 yrs Sex: Female : 1990 Arrival Date: 07/10/2022 Time: 14:40 Bed 9 Private MD: Diagnosis: Cutaneous Laceration of the Foot Presentation: 07/10 14:51 Chief complaint: Patient states: She tripped and fell over a plant. The vine of the [employer] [place] plant got wrapped around her foot, lacerating the space between her great toe and second toe on the left foot. Coronavirus screen: Vaccine status: Patient reports being unvaccinated. Client denies travel out of the [place] in the last 14 days. Ebola Screen: Patient negative for fever greater than or equal to 101.5 degrees Fahrenheit, and additional compatible Ebola Virus Disease symptoms Patient denies exposure to infectious person. Patient denies travel to an Ebola-affected area in the 21 days before illness onset. Complicating Factors: There are no complicating factors for this patient. Initial Sepsis Screen: Does the patient meet any 2 criteria? No. Patient's initial sepsis screen is negative. Does the patient have a suspected source of infection? No. Patient's initial sepsis screen is negative. Risk Assessment: Do you want to hurt yourself or someone else? Patient reports no desire to harm self or others. Onset of symptoms was July 10, 2022 at 13:00. 14:51 Method Of Arrival: Ambulatory 3 14:51 Acuity: MARC 4 kb3 Triage Assessment: 14:54 General: Appears in no apparent distress. Behavior is calm, cooperative. Pain: kb3 Complains of pain in left first toe and left second toe Pain does not radiate. Pain currently is 8 out of 10 on a pain scale. Injury Description: Laceration sustained to left first toe and left second toe is 0.5 to 2.5 cm long, was sustained 1-2 hours ago. is bleeding a small amount. [employer]: 14:54 LMP N/A - control method kb3 Historical: - Allergies: 14:54 No Known Allergies; kb3 - Home Meds: 14:54 None [Active]; kb3 - PMHx: 14:54 Anxiety; kb3 - PSHx: 14:54 None; kb3 - Immunization history:: Adult Immunizations up to date, Client reports having NOT received the Covid vaccine. Last tetanus immunization: unknown. - Social history:: Smoking status: Patient reports the use of cigarette tobacco products, smokes one-half pack cigarettes per day. Screenin:30 Abuse screen: Denies threats or abuse. Denies injuries from another. Nutritional hb screening: No deficits noted. Tuberculosis screening: No symptoms or risk factors identified. Fall Risk None identified. Assessment: 16:02 General: Appears in no apparent distress. Behavior is calm, cooperative. Neuro: Level hb of Consciousness is awake, alert, obeys commands, Oriented to person, place, time, situation. Cardiovascular: Patient's skin is warm and dry. Respiratory: Respiratory effort is even, unlabored, Respiratory pattern is regular, symmetrical. Vital Signs: 14:51 BP 125 / 83; Pulse 74; Resp 20; Temp 99.0; Pulse Ox 96% ; Weight 81.65 kg; Height 5 ft. kb3 8 in. (172.72 cm); Pain 7/10; 14:51 Body Mass Index 27.37 (81.65 kg, 172.72 cm) kb3 ED Course: 14:40 Patient arrived in ED. jl7 14:40 Cristo Dos Santos DO is Attending Physician. ms3 14:48 Riley Graham PA is PHCP. [facility] 14:54 Triage completed. kb3 14:54 Arm band placed on right wrist. kb3 15:01 Iliana Munguia, RN is Primary Nurse. hb 16:30 Patient has correct armband on for positive identification. hb 16:30 No provider procedures requiring assistance completed. Patient did not have IV access hb during this emergency room visit. Administered Medications: 15:06 Drug: Tetanus-Diphtheria Toxoid Adult 0.5 ml {[employer]: [employer]. Exp: hb 12/18/2023. Lot #: [id number]. } Route: IM; Site: right deltoid; 15:40 Follow up: Response: No adverse reaction hb 15:11 Drug: Lidocaine (1 %) 20 ml {Note: Administered by DEDRICK Lin.} Volume: 20 ml; Route: hb Infiltration; 16:00 Follow up: Response: No adverse reaction hb 16:02 Drug: Augmentin (Amoxicillin-Clavulanate) 875 mg Route: PO; jl7 16:20 Follow up: Response: Medication administered at discharge. 16:02 Drug: Doxycycline 100 mg Route: PO; jl7 16:20 Follow up: Response: Medication administered at discharge. Medication: 16:30 VIS not applicable for this client. hb Outcome: 16:09 Discharge ordered by . nicanor 16:38 Discharged to home 16:38 Condition: stable 16:38 Discharge instructions given to patient, Instructed on discharge instructions, follow up and referral plans. medication usage, Demonstrated understanding of instructions, follow-up care, medications, Prescriptions given X 2. 16:39 Patient left the ED. hb Signatures: Riley Graham PA PA jmm Baxter, Heather, RN RN Yamileth Yo RN RN jl7 Cristo Dos Santos DO DO ms3 Zoë Lira, RN RN kb3
[2022-07-10 16:48] VITALS: BP 125/83; TEMP 99; O2SAT 96
== END 2022-07-10 16:39 | disposition home or self-care (01) ==
LOC: ER 14:27
PROC: 0JQR0ZZ Repair Left Foot Subcutaneous Tissue and Fascia, Open Approach (ICD-10-PCS; principal; 2022-07-10)
DX: S91.115A Laceration without foreign body of left lesser toe(s) without damage to nail, initial encounter (principal); Z23 Encounter for immunization
CPT/HCPCS: 90471; 90714; 99283

== ENCOUNTER 2024-08-05 10:06 | Emergency (ER) | payer SELFPAY ==
--- OUTSIDE RECORDS SUMMARY | 2024-08-05 10:09 | XMS REPORT | Continuity of Care Document ---
Author Name Unknown Address [address] [facility] [place] [address] [facility] Address [address] [facility] [address] [place] [address] Care Team Providers Care Skin Grader Name Role Phone PCP, PATIENT DOES NOT HAVE A Primary Care Physic nena Unavailable ANI HEAD Attending Clinician Unavailable Ani Matias Attending Clinician [phone] Doctor Unassigned, [place] Attending Clinician U carlie Borges RN, Madeleine Attending Clinician UnavailGhislaine [place] Attending Clinician [phone] Payers Payer Name Policy Type Policy Number Effective Date Expirati on Date Source Problems Condition Name Condition Details Condition Category Status Onset Date Resolution Date Last Treatment Date Treating Clinician Comments Source Cervical high risk human papillomav irus (HPV) DNA test positive Cervical high risk human papillomav irus (HPV) DNA test positive Disease Active 11-10 00:00: 00 [facility] Atypical squamous cell changes of undetermin ed significan ce (ASCUS) on vaginal cytology Atypical squamous cell changes of undetermin ed significan ce (ASCUS) on vaginal cytology Disease Active 11-09 00:00: 00 Overview: Formattin g of this note might be different from the original. ASCUS on 10/2017 pap smear, awaiting HPV results. [facility] Overweight Overweight Disease Active 11-02 00:00: 00 [facility] BMI 27.0-27.9, adult BMI 27.0-27.9, adult Disease Active 11-02 00:00: 00 [facility] care and examinatio n immediatel y after delivery care and examinatio n immediatel y after delivery Disease Active 10-17 00:00: 00 [facility] Obstetrica l laceration , Minor Obstetrica l laceration , Minor Disease Active 09-20 00:00: 00 [facility] Reactive depression Reactive depression Disease Active 09-19 00:00: 00 Overview: Formattin g of this note might be different from the original. Patient requestin g medicatio n for depressio n prior to going home. [facility] Encounter for initial prescripti on of injectable contracept boris Encounter for initial prescripti on of injectable contracept boris Disease Active 09-19 00:00: 00 Overview: Formattin g of this note might be different from the original. Wants depoprove ra prior to leaving hospital. [facility] Chlamydia Chlamydia Disease Active 04-04 00:00: 00 [facility] Trauma Trauma Disease Active 04-03 00:00: 00 [facility] Allergies, Adverse Reactions, Alerts Allergy Name Allergy Type Status Severity Reaction(s) Onset Date Inactive Date Treating Clinician Comments Source NO KNOWN ALLERGIE S Drug Class Active [facility] Social History Social Habit Start Date Stop Date Quantity Comments Source History SDOH Alcohol Frequency [facility] History SDOH Alcohol Std Drinks [facility] History SDOH Alcohol Binge [facility] Exposure to SARS-CoV-2 (event) Not sure [facility] Alcohol intake 2017-11-10 00:00:00 2017-11-10 00:00:00 Current drinker of alcohol (finding) [facility] Alcohol Comment 2017-10-17 00:00:00 2017-10-17 00:00:00 socially [facility] Cigarettes smoked current (pack per day) - Reported 2017-10-17 00:00:00 2017-10-17 00:00:00 [facility] Tobacco use and exposure 2017-10-17 00:00:00 2017-10-17 00:00:00 Never used [facility] Tobacco Comment 2017-10-17 00:00:00 2017-10-17 00:00:00 smokes 5-6 x per day [facility] History of tobacco use 2016-08-14 00:00:00 2017-03-27 00:00:00 Cigarette Smoker [facility] Sex Assigned At 1990 00:00:00 1990 00:00:00 [facility] Smoking Status Start Date Stop Date Source Current every day smoker 2017-10-17 00:00:00 [facility] Medications Ordered Medication Name Filled Medication Name Start Date Stop Date Current Medication? Ordering Clinician Indication Dosage Frequency Signature (SIG) Comments Components Source ofloxacin 0.3 % otic drops 2020-08 00:00: 00 Yes [id number] 5[drp] Place 5 Drops in both ears 2 (two) times daily. [facility] traMADoL 50 mg tablet 2020-08 00:00: 00 Yes [id number] 50mg Take 1 tablet by mouth every 6 (six) hours as needed for Pain (scale 7-10). Indication s: acute pain [facility] HYDROcodone -acetaminop hen (NORCO) 10-325 mg tablet 1 tablet 04-12 00:15: 00 04-11 23:13 :00 No 1{tbl} 1 tablet, Oral, ONCE NOW, 1 dose, 04/11/20 at 1915, TASH [facility] ketorolac (TORADOL) injection 60 mg 04-12 00:15: 04-11 23:13 :00 No 60mg 60 mg, Intramuscu lar, ONCE, 1 dose, 04/11/20 at 1915, TASH
Fa culty member approving Restricted medication : EMERGENCY ROOM, [facility] ibuprofen 800 mg tablet 04-11 00:00: 00 Yes [id number] 800mg Take 1 tablet by mouth every 8 (eight) hours as needed for Pain (scale 4-6). [facility] methocarbam oL 750 mg tablet 04-11 00:00: 00 Yes [id number] 750mg Take 1 tablet by mouth 4 (four) times daily as needed (muscle spasm). [facility] acetaminoph en-codeine 300-30 mg tablet 04-11 00:00: 00 04-19 04:59 :00 No 4647 1{tbl} Take 1 tablet by mouth every 6 (six) hours as needed for Pain (scale 7-10) for up to 7 days. Indication s: acute pain [facility] ibuprofen 600 mg tablet 07 00:00: 00 Yes 600mg Take 1 tablet by mouth every 6 (six) hours as needed for Pain (scale 1-3) or Pain (scale 4-6) (Pain). Take with food or milk. [facility] Vital Signs Vital Name Observation Time Observation Value Comments S ource Heart rate 2021-06-23 06:20:00 96 /min [facility] Body temperature 2021-06-23 06:20:00 37.39 [facility] Respiratory rate 2021-06-23 06:20:00 19 /min [facility] Oxygen saturation in Arterial blood by Pulse oximetry 2021-06-23 06:20:00 99 /min [facility] Systolic blood pressure 2021-06-23 06:20:00 137 mm[Hg] [facility] Diastolic blood pressure 2021-06-23 06:20:00 86 mm[Hg] [facility] Systolic blood pressure 2020-04-11 22:45:00 131 mm[Hg] [facility] Diastolic blood pressure 2020-04-11 22:45:00 83 mm[Hg] [facility] Heart rate 2020-04-11 22:45:00 77 /min [facility] Body temperature 2020-04-11 22:45:00 37.06 [facility] Respiratory rate 2020-04-11 22:45:00 16 /min [facility] Body weight 2020-04-11 22:45:00 81.647 kg [facility] BMI 2020-04-11 22:45:00 28.19 kg/m2 [facility] Oxygen saturation in Arterial blood by Pulse oximetry 2020-04-11 22:45:00 99 /min [facility] Procedures Procedure Date / Time Performed Performing Clinicia n Source NOTICE OF PRIVACY PRACTICES 2021-06-23 06:14:12 Doctor Unassigned, [place] [facility] CONSENT/REFUSAL FOR DIAGNOSIS AND TREATMENT 2021-06-23 06:13:45 Doctor Unassigned, [place] [facility] XR LUMBAR SPINE 3 VW 2020-04-11 23:32:14 Yobani Negrete [facility] XR SPINE THORACIC 2 VW 2020-04-11 23:32:14 Marcela Negrete [facility] URINALYSIS 2020-04-11 23:12:00 Ghislaine Negrete [facility] POCT TEST 2020-04-11 23:10:00 Surekha Negrete [facility] NOTICE OF PRIVACY PRACTICES 2020-04-11 22:38:11 Doctor Unassigned, [place] [facility] Encounters Start Date/Time End Date/Time Encounter Type Admission Type Attending [facility] Care Facility Care Department Encounter ID Source 2021-06-11 14:49:41 Emergency [facility] [id number] [facility] 2023-08-17 09:47:53 2023-08-17 09:47:53 Outpatient [facility] [id number] Vik Cartagena 2021-06-23 00:28:00 2021-06-23 01:45:00 Emergency X ANI HEAD [facility] ERT [id number] [facility] 2021-06-23 00:28:00 2021-06-23 01:45:00 Emergency Ani Head S [facility] [id number] [facility] 2021-06-23 00:00:00 2021-06-23 00:00:00 Orders Only Doctor Unassigned, [place] [facility] [id number] [facility] 2021-06-22 00:00:00 2021-06-22 00:00:00 Nurse Triage Madeleine Borges [facility] [id number] [facility] 2020-04-11 17:46:00 2020-04-11 19:23:[address] [facility] [id number] [facility] Results Test Description Test Time Test Comments Results Result Co mments Source [id number] 23:10:00* Test Item Value Reference Range Interpretation Comme nts POCT PREG (test code = 1605) negative On board controls acceptable with C Line (test code = 3574) present POCT PREG LOT # (test code = 3575) [id number] POCT PREG TEST DATE ( test code = 3576) Lab Interpretation (test cod e = 45046-1) Normal [facility]
[2024-08-05 10:47] LABS: Absolute Basophils 0.1 K/uL (0-0.5); Absolute Eosinophils 0.1 K/uL (0-0.5); Absolute Lymphocytes (CBC) 2.2 K/uL (0.7-4.9); Absolute Monocytes 0.9 K/uL (0.1-1.3); Absolute Neutrophil 11.9 K/uL (1.8-8.0); Basophils % 0.6 % (0-1.3); Eosinophils % 0.8 % (0-4.4); Hematocrit 44.1 % (36.0-45.0); Lymphocytes % 14.6 % (15.3-44.8); MCH 31.2 pg (27.0-35.0); MCV 91.8 fL (80-100); MPV 8.2 fL (7.6-11.3); Monocytes % 5.9 % (3.3-12.3); Neutrophils % 78.1 % (41.7-73.7); Platelets 258 thou/uL (152-406); RBC Red Blood Cell Count 4.81 M/uL (3.86-4.86); Red Cell Distribution Width 12.7 % (12.1-15.2)
[2024-08-05] MEDS ORDERED: ALBUTEROL 2.5 MG/3 ML NEB SOL ONE (10:57)
[2024-08-05] MEDS ORDERED: NA CHLORIDE 0.9% 1,000 ML ONE (10:57)
[2024-08-05] MEDS ORDERED: METHYLPREDNISOLONE 125 MG INJ ONE (10:57)
[2024-08-05] MEDS ORDERED: IPRATROPIUM BROM 0.5MG/2.5ML ONE (10:57)
[2024-08-05 11:05] LABS: Anion Gap 8.4 mEq/L (5.0-15.0); Potassium 3.4 mEq/L (3.5-5.1); Troponin High Sensitivity 26.6 pg/mL (<58.9)
[2024-08-05 11:08] LABS: SARS-CoV-2 Antigen CONTROL BLUE LINE VIS/BG OK; SARS-CoV-2 Antigen Rapid Res Negative (Negative)
--- NOTE | 2024-08-05 11:43 | RAD REPORT ---
EXAMINATION: ONE VIEW CHEST XR CLINICAL INDICATION: Female, 34 years old.,Chest pain;SOB TECHNIQUE: Frontal chest projection is submitted. Examination is limited by patient positioning and t echnique. COMPARISON: No prior exam. FINDINGS: The lungs are well inflated and clear. No pneumothorax or sizable effusion. The heart is normal in s ize. Mediastinal contours are unremarkable. IMPRESSION: No acute intrathoracic abnormalities.
[2024-08-05 12:27] LABS: Monoscreen NEG (NEG)
--- NOTE | 2024-08-05 13:35 | RAD REPORT ---
EXAMINATION: CTA CHEST PE CLINICAL INDICATION: Chest pain TECHNIQUE: 100 cc 370 Isovue administered intravenously. This examination was performed according to an angiographic protocol with 3D post-processing. This involves 3D reconstructions, MIPs, volume rendered images and/or shaded surface rendering. One or more of the following dose reduction techniqu es were used: Automated exposure control, adjustment of the mA and/or kV according to patient size, and/or iterative reconstruction. Unless otherwise specified, incidental findings do not require dedic ated imaging follow-up. [id number]. COMPARISON: No prior exam. FINDINGS: A pulmonary embolus is not seen. An aortic aneurysm not noted. No pleural effusion. No pericardial effusion. Lungs are clear. IMPRESSION: No evidence of a pulmonary embolism
--- NOTE | 2024-08-05 13:43 | EDPHYS ---
Physician Documentation [facility] Name: Teressa Lopez Age: 34 yrs Sex: Female : 1990 Arrival Date: 08/05/2024 Time: 10:06 Bed 16 Private MD: ED Physician Guille Barclay HPI: 08/05 10:31 This 34 yrs old Female presents to ER via Unassigned with complaints of Chest Pain, sb4 Chest Tightness, Shortness Of Breath. 10:31 Chest pain and shortness of breath that began last night. Family members have been sick sb4 with flulike symptoms. States that she smokes cigarettes, and has been smoking more than usual over the past week. Does report a few episodes of nausea and vomiting. Also endorses cough. Historical: - Allergies: 11:09 No Known Allergies; kc6 - Home Meds: 11:09 None [Active]; kc6 - PMHx: 11:09 Anxiety; kc6 - PSHx: 11:09 None; kc6 - Immunization history:: Adult Immunizations unknown. - Infectious Disease History:: Denies. - Social history:: Smoking status: Reported history of juuling and/or vaping. ROS: 10:31 Skin: Negative for injury, rash, and discoloration, sb4 10:31 Constitutional: Positive for fatigue, 10:31 Cardiovascular: Positive for chest pain, 10:31 Respiratory: Positive for cough, dyspnea on exertion, shortness of breath, wheezing, 10:31 Abdomen/GI: Positive for nausea and vomiting, 10:31 All other systems are negative, Exam: 10:32 Head/Face: Normocephalic, atraumatic. Eyes: Extra-ocular motions intact. Periorbital sb4 areas with no swelling, redness, or edema. ENT: Mucous membranes moist. Cardiovascular: Regular rate and rhythm with a normal S1 and S2. Respiratory: No increased work of breathing, no retractions or nasal flaring. Abdomen/GI: Soft, non-tender, no distension. Skin: Warm, dry with normal turgor. Normal color with no rashes, no lesions, and no evidence of cellulitis. 10:32 Constitutional: The patient appears alert, awake, in obvious distress, mildly distressed, Vital Signs: 11:10 BP 130 / 85; Pulse 63; Resp 16 S; Pulse Ox 98% on R/A; kc6 12:25 BP 109 / 65; Pulse 85; Resp 18 S; Pulse Ox 99% on R/A; kc6 MDM: 10:25 Medical Screening Exam initiated sb4 13:41 Data reviewed: vital signs, nurses notes, lab test result(s), EKG, radiologic studies, sb4 I have discussed the patient's presentation/case with the attending Emergency Department Physician; and as a result, I will discharge patient. Counseling: I had a detailed discussion with the patient and/or guardian regarding the historical points, exam findings, and any diagnostic results supporting the discharge/admit diagnosis, lab results, radiology results, to return to the emergency department if symptoms worsen or persist or if there are any questions or concerns that arise at home, smoking cessation. 08/05 11:17 Order name: Strep sb4 08/05 10:26 Order name: Basic Metabolic Panel; Complete Time: 11:05 sb4 08/05 10:26 Order name: CBC with Diff; Complete Time: 10:51 sb4 08/05 10:26 Order name: Troponin HS; Complete Time: 11:05 sb4 08/05 10:26 Order name: Test, Serum; Complete Time: 11:15 sb4 08/05 10:26 Order name: SARS RAPID; Complete Time: 11:12 sb4 08/05 10:26 Order name: Flu; Complete Time: 11:12 sb4 08/05 11:31 Order name: [place] Screen Profile; Complete Time: 12:27 sb4 08/05 12:12 Order name: Throat Culture [facility] 08/05 10:26 Order name: XRAY Chest (1 view); Complete Time: 11:45 sb4 08/05 12:35 Order name: Chest For PE Angio CT; Complete Time: 13:36 sb4 08/05 10:26 Order name: Cardiac monitoring; Complete Time: 10:41 sb4 08/05 10:26 Order name: EKG - Nurse/Tech; Complete Time: 10:41 sb4 08/05 10:26 Order name: IV Saline Lock; Complete Time: 10:41 sb4 08/05 10:26 Order name: Labs collected and sent; Complete Time: 10:41 sb4 08/05 10:26 Order name: O2 Per Protocol; Complete Time: 10:41 sb4 08/05 10:26 Order name: O2 Sat Monitoring; Complete Time: 10:41 sb4 EC:10 Rate is 71 beats/min. Rhythm is regular, Sinus arrythmia. MO interval is normal at 162 sb4 msec. QRS interval is normal at 78 msec. QT interval is normal at 392 msec. No Q waves. T waves are Normal. No ST changes noted. Clinical impression: No evidence of ischemia. Interpreted by me. Reviewed by me. Administered Medications: 11:08 Drug: DuoNeb Nebulize (3:1) (2.5 mg - 0.5 mg) 3 ml Nebulizer once Route: Nebulizer; [facility] 11:44 Follow up: Response: No adverse reaction [facility] 11:08 Drug: NS 0.9% IV 1000 ml IV at 1000 ml once; to be given as a bolus over 60 minutes kc6 Route: IV; Rate: 1000 ml; Site: left antecubital; 12:33 Follow up: Response: No adverse reaction; IV Status: Completed infusion; IV Intake: kc6 1000ml 11:08 Drug: MethylPrednisoLONE IVP 125 mg IVP once Route: IVP; Site: left antecubital; [facility] 11:44 Follow up: Response: No adverse reaction kc6 Disposition Summary: 08/05/24 13:42 Discharge Ordered Notes: Location: Home sb4 Problem: new sb4 Symptoms: have improved sb4 Condition: Stable sb4 Diagnosis - Acute bronchitis, unspecified sb4 Followup: sb4 - With: Emergency Department - When: As needed - Reason: Trouble breathing, Worsening of condition Discharge Instructions: - Discharge Summary Sheet sb4 - Acute Bronchitis, Adult sb4 Forms: - Patient Portal Instructions sb4 - Leadership Thank You Letter sb4 Prescriptions: - albuterol sulfate 90 mcg/actuation Inhalation HFA Aerosol Inhaler - inhale 1 puff INHALATION route every 4 to 6 hours PRN shortness of breath or sb4 wheezing; 1 Applicator; Refills: 0, Product Selection Permitted - Prednisone 20 mg Oral Tablet - take 1 tablet ORAL route every 12 hours for 5 days; 10 tablet; Refills: 0, sb4 Product Selection Permitted Signatures: Dispatcher [employer] Nayana Lala RN RN kc6 Krystle Louis PA-C PA-C sb4 Corrections: (The following items were deleted from the chart) 11:18 11:18 Group A Streptococcus Rapid Sc+BA.LAB.BRZ ordered. EDMS EDMS 11:32 11:32 MONO SCREEN PROFILE+I.LAB.BRZ ordered. EDMS EDMS 11:40 11:09 Social history: Smoking status: unknown kc6 kc6 12:35 12:35 Chest For PE Angio+CT.RAD.BRZ ordered. EDMS EDMS
--- NOTE | 2024-08-05 13:43 | ER ---
Nurse's Notes [facility] Name: Teressa Lopez Age: 34 yrs Sex: Female : 1990 Arrival Date: 08/05/2024 Time: 10:06 Bed 16 Private MD: Diagnosis: Acute bronchitis, unspecified Presentation: 08/05 11:25 Coronavirus screen: At this time, the client does not indicate any symptoms associated [facility] with coronavirus-19. Ebola Screen: No symptoms or risks identified at this time. Initial Sepsis Screen: Does the patient meet any 2 criteria? No. Patient's initial sepsis screen is negative. Does the patient have a suspected source of infection? No. Patient's initial sepsis screen is negative. Risk Assessment: Do you want to hurt yourself or someone else? Patient reports no desire to harm self or others. Onset of symptoms was August 05, 2024. 11:25 Method Of Arrival: Ambulatory [facility] 11:25 Acuity: MARC 3 [facility] 11:25 Chief complaint: Patient states: cough, CP, SOB, wheezing x3 days. pt also reports n/v. kc6 Historical: - Allergies: 11:09 No Known Allergies; kc6 - Home Meds: 11:09 None [Active]; kc6 - PMHx: 11:09 Anxiety; kc6 - PSHx: 11:09 None; kc6 - Immunization history:: Adult Immunizations unknown. - Infectious Disease History:: Denies. - Social history:: Smoking status: Reported history of juuling and/or vaping. Screenin:25 [facility] ED Fall Risk Assessment (Adult) History of falling in the last 3 months, kc6 including since admission No falls in past 3 months (0 pts) Confusion or Disorientation No (0 pts) Intoxicated or Sedated No (0 pts) Impaired Gait No (0 pts) Mobility Assist Device Used No (0 pt) Altered Elimination No (0 pt) Score/Fall Risk Level 0 - 2 = Low Risk Oriented to surroundings, Maintained a safe environment. Abuse screen: Denies threats or abuse. Denies injuries from another. Nutritional screening: No deficits noted. Tuberculosis screening: No symptoms or risk factors identified. Assessment: 11:40 General: Appears in no apparent distress. uncomfortable, well groomed, well developed, kc6 Behavior is calm, cooperative, appropriate for age. Pain: Complains of pain in chest Pain does not radiate. Quality of pain is described as sharp, Pain began 2-3 days ago. Is intermittent. Neuro: Level of Consciousness is awake, alert, obeys commands, Oriented to person, place, time, situation, Appropriate for age. Cardiovascular: Reports chest pain, shortness of breath, Capillary refill < 3 seconds Rhythm is regular. Respiratory: Reports cough that is dry, persistent Airway is patent Trachea midline Respiratory effort is even, unlabored, Respiratory pattern is regular, symmetrical. GI: Reports nausea, vomiting, Patient currently denies abdominal pain, diarrhea. : No signs and/or symptoms were reported regarding the genitourinary system. EENT: No signs and/or symptoms were reported regarding the EENT system. Derm: No signs and/or symptoms reported regarding the dermatologic system. Skin is intact, is healthy with good turgor, Skin is pink, warm \T\ dry. Musculoskeletal: No signs and/or symptoms reported regarding the musculoskeletal system. Circulation, motion, and sensation intact. Range of motion: intact in all extremities. 12:25 Reassessment: Patient appears in no apparent distress at this time. No changes from kc6 previously documented assessment. Patient and/or family updated on plan of care and expected duration. Pain level reassessed. Patient is alert, oriented x 3, equal unlabored respirations, skin warm/dry/pink. 13:15 Reassessment: Patient appears in no apparent distress at this time. No changes from kc6 previously documented assessment. Patient and/or family updated on plan of care and expected duration. Pain level reassessed. Patient is alert, oriented x 3, equal unlabored respirations, skin warm/dry/pink. Vital Signs: 11:10 BP 130 / 85; Pulse 63; Resp 16 S; Pulse Ox 98% on R/A; kc6 12:25 BP 109 / 65; Pulse 85; Resp 18 S; Pulse Ox 99% on R/A; kc6 ED Course: 10:10 Patient arrived in ED. mr 10:13 Krystle Louis PA-C is PHCP. sb4 10:13 Guille Barclay MD is Attending Physician. sb4 10:30 Lorenzo Hodge RN is Primary Nurse. rs5 11:09 Arm band placed on. kc6 11:10 XRAY Chest (1 view) In Process Unspecified. EDMS 11:25 Patient has correct armband on for positive identification. Bed in low position. Call kc6 light in reach. Side rails up X 1. Pulse ox on. NIBP on. Door closed. Noise minimized. Lights dimmed. Pillow given. 11:25 Inserted saline lock: 22 gauge in left antecubital area, using aseptic technique. Blood kc6 collected. Flushed with 10 mL NS. Patient maintains SpO2 saturation greater than 95% on room air. 11:26 Triage completed. kc6 11:53 [place] Screen Profile Sent. kc6 11:53 Strep Sent. kc6 13:01 Chest For PE Angio CT In Process Unspecified. EDMS 13:47 No provider procedures requiring assistance completed. IV discontinued, intact, kc6 bleeding controlled, No redness/swelling at site. Pressure dressing applied. Administered Medications: 11:08 Drug: DuoNeb Nebulize (3:1) (2.5 mg - 0.5 mg) 3 ml Nebulizer once Route: Nebulizer; kc6 11:44 Follow up: Response: No adverse reaction kc6 11:08 Drug: NS 0.9% IV 1000 ml IV at 1000 ml once; to be given as a bolus over 60 minutes kc6 Route: IV; Rate: 1000 ml; Site: left antecubital; 12:33 Follow up: Response: No adverse reaction; IV Status: Completed infusion; IV Intake: kc6 1000ml 11:08 Drug: MethylPrednisoLONE IVP 125 mg IVP once Route: IVP; Site: left antecubital; kc6 11:44 Follow up: Response: No adverse reaction kc6 Medication: 13:47 VIS not applicable for this client. kc6 Intake: 12:33 IV: 1000ml; Total: 1000ml. kc6 Outcome: 13:42 Discharge ordered by . sb4 13:47 Discharged to home ambulatory, with family, kc6 13:47 Condition: improved 13:47 Discharge instructions given to patient, Instructed on discharge instructions, follow up and referral plans. medication usage, Demonstrated understanding of instructions, follow-up care, medications, Prescriptions given X 2, 13:47 Patient left the ED. kc6 Signatures: Dispatcher [employer] EDTN Rhina Banda, Reg Reg mr Nayana Cagle RN RN kc6 Krystle Louis PA-C PAMaritza [email or web address] Lorenzo Hodge, RN RN rs5 Corrections: (The following items were deleted from the chart) 11:40 11:09 Social history: Smoking status: unknown kc6 kc6
[2024-08-05 14:15] VITALS: BP 109/65; O2SAT 99
--- NOTE | 2024-08-06 14:41 | EKG ---
Test Date: 2024-08-05 Test Time: 10:40:28 Tube Puller: ALEXANDER MEASUREMENT RESULTS: Intervals: Rate: 71 MA: 162 QRSD: 78 QT: 392 QTc: 425 [place]: P: 76 MA: 162 QRS: 61 T: 78 INTERPRETIVE STATEMENTS: Normal sinus rhythm with sinus arrhythmia Normal ECG No previous ECG available for comparison Electronically Signed On 08-06-24 14:39:17 CHEMISTRY DEPARTMENT CHAIR by Cj Pulliam
== END 2024-08-05 13:47 | disposition home or self-care (01) ==
LOC: ER 10:06
DX: J20.9 Acute bronchitis, unspecified (principal); F17.210 Nicotine dependence, cigarettes, uncomplicated; Z11.52 Encounter for screening for COVID-19
CPT/HCPCS: 36415; 71045; 71275; 80048; 84484; 84703; 85025; 86308; 87070; 87081; 87804; 87811; 93005; 96361; 96374; 99285; J2919; J7030; J7613; J7644; Q9967

== ENCOUNTER 2025-05-31 02:51 | Emergency (ER) | payer SELFPAY ==
--- OUTSIDE RECORDS SUMMARY | 2025-05-31 02:55 | XMS REPORT | Continuity of Care Document ---
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 [employer] Name Role Phone PCP, PATIENT DOES NOT HAVE A Primary Care Physic nena Unavailable ANI HEAD Attending Clinician Unavailable nAi Matias Attending Clinician [phone] Doctor Unassigned, [place] Attending Clinician U carlie Borges RN, Madeleine Attending Clinician UnavailGhislaine [place] Attending Clinician [phone] Payers Payer Name Policy Type Policy Number Effective Date Expirati on Date Source Problems Condition Name Condition Details Condition Category Status Onset Date Resolution Date Last Treatment Date Treating Clinician Comments Source Cervical high risk human papillomav irus (HPV) DNA test positive Cervical high risk human papillomav irus (HPV) DNA test positive Disease Active 11-10 00:00: 00 [facility] Atypical squamous cell changes of undetermin ed significan ce (ASCUS) on vaginal cytology Atypical squamous cell changes of undetermin ed significan ce (ASCUS) on vaginal cytology Disease Active 11-09 00:00: 00 Overview: Formattin g of this note might be different from the original. ASCUS on 10/2017 pap smear, awaiting HPV results. [facility] Overweight Overweight Disease Active 11-02 00:00: 00 [facility] BMI 27.0-27.9, adult BMI 27.0-27.9, adult Disease Active 11-02 00:00: 00 [facility] care and examinatio n immediatel y after delivery care and examinatio n immediatel y after delivery Disease Active 10-17 00:00: 00 [facility] Obstetrica l laceration , Minor Obstetrica l laceration , Minor Disease Active 09-20 00:00: 00 [facility] Reactive depression Reactive depression Disease Active 09-19 00:00: 00 Overview: Formattin g of this note might be different from the original. Patient requestin g medicatio n for depressio n prior to going home. [facility] Encounter for initial prescripti on of injectable contracept boris Encounter for initial prescripti on of injectable contracept boris Disease Active 09-19 00:00: 00 Overview: Formattin g of this note might be different from the original. Wants depoprove ra prior to leaving hospital. [facility] Chlamydia Chlamydia Disease Active 04-04 00:00: 00 [facility] Trauma Trauma Disease Active 04-03 00:00: 00 [facility] Allergies, Adverse Reactions, Alerts Allergy Name Allergy Type Status Severity Reaction(s) Onset Date Inactive Date Treating Clinician Comments Source NO KNOWN ALLERGIE S Drug Class Active [facility] Social History Social Habit Start Date Stop Date Quantity Comments Source History SDOH Alcohol Frequency [facility] History SDOH Alcohol Std Drinks [facility] History SDOH Alcohol Binge [facility] Exposure to SARS-CoV-2 (event) Not sure [facility] Alcohol intake 2017-11-10 00:00:00 2017-11-10 00:00:00 Current drinker of alcohol (finding) [facility] Alcohol Comment 2017-10-17 00:00:00 2017-10-17 00:00:00 socially [facility] Cigarettes smoked current (pack per day) - Reported 2017-10-17 00:00:00 2017-10-17 00:00:00 [facility] Tobacco use and exposure 2017-10-17 00:00:00 2017-10-17 00:00:00 Never used [facility] Tobacco Comment 2017-10-17 00:00:00 2017-10-17 00:00:00 smokes 5-6 x per day [facility] History of tobacco use 2016-08-14 00:00:00 2017-03-27 00:00:00 Cigarette Smoker [facility] Sex Assigned At 1990 00:00:00 1990 00:00:00 [facility] Smoking Status Start Date Stop Date Source Current every day smoker 2017-10-17 00:00:00 [facility] Medications Ordered Medication Name Filled Medication Name Start Date Stop Date Current Medication? Ordering Clinician Indication Dosage Frequency Signature (SIG) Comments Components Source ofloxacin 0.3 % otic drops 2020-08 00:00: 00 Yes [id number] 5[drp] Place 5 Drops in both ears 2 (two) times daily. [facility] traMADoL 50 mg tablet 2020-08 00:00: 00 Yes [id number] 50mg Take 1 tablet by mouth every 6 (six) hours as needed for Pain (scale 7-10). Indication s: acute pain [facility] HYDROcodone -acetaminop hen (NORCO) 10-325 mg tablet 1 tablet 04-12 00:15: 00 04-11 23:13 :00 No 1{tbl} 1 tablet, Oral, ONCE NOW, 1 dose, 04/11/20 at 1915, TASH [facility] ketorolac (TORADOL) injection 60 mg 04-12 00:15: 04-11 23:13 :00 No 60mg 60 mg, Intramuscu lar, ONCE, 1 dose, 04/11/20 at 1915, TASH
Fa culty member approving Restricted medication : EMERGENCY ROOM, [facility] ibuprofen 800 mg tablet 04-11 00:00: 00 Yes [id number] 800mg Take 1 tablet by mouth every 8 (eight) hours as needed for Pain (scale 4-6). [facility] methocarbam oL 750 mg tablet 04-11 00:00: 00 Yes [id number] 750mg Take 1 tablet by mouth 4 (four) times daily as needed (muscle spasm). [facility] acetaminoph en-codeine 300-30 mg tablet 04-11 00:00: 00 04-19 04:59 :00 No [id number] 1{tbl} Take 1 tablet by mouth every 6 (six) hours as needed for Pain (scale 7-10) for up to 7 days. Indication s: acute pain [facility] ibuprofen 600 mg tablet 07 00:00: 00 Yes 600mg Take 1 tablet by mouth every 6 (six) hours as needed for Pain (scale 1-3) or Pain (scale 4-6) (Pain). Take with food or milk. [facility] Vital Signs Vital Name Observation Time Observation Value Comments S ource Heart rate 2021-06-23 06:20:00 96 /min [facility] Body temperature 2021-06-23 06:20:00 37.39 [place]ling [facility] Respiratory rate 2021-06-23 06:20:00 19 /min [facility] Oxygen saturation in Arterial blood by Pulse oximetry 2021-06-23 06:20:00 99 /min [facility] Systolic blood pressure 2021-06-23 06:20:00 137 mm[Hg] [facility] Diastolic blood pressure 2021-06-23 06:20:00 86 mm[Hg] [facility] Systolic blood pressure 2020-04-11 22:45:00 131 mm[Hg] [facility] Diastolic blood pressure 2020-04-11 22:45:00 83 mm[Hg] [facility] Heart rate 2020-04-11 22:45:00 77 /min [facility] Body temperature 2020-04-11 22:45:00 37.06 Darling [facility] Respiratory rate 2020-04-11 22:45:00 16 /min [facility] Body weight 2020-04-11 22:45:00 81.647 kg [facility] BMI 2020-04-11 22:45:00 28.19 kg/m2 [facility] Oxygen saturation in Arterial blood by Pulse oximetry 2020-04-11 22:45:00 99 /min [facility] Procedures Procedure Date / Time Performed Performing Clinicia n Source NOTICE OF PRIVACY PRACTICES 2021-06-23 06:14:12 Doctor Unassigned, [place] [facility] CONSENT/REFUSAL FOR DIAGNOSIS AND TREATMENT 2021-06-23 06:13:45 Doctor Unassigned, [place] [facility] XR LUMBAR SPINE 3 VW 2020-04-11 23:32:14 Yobani Negrete [facility] XR SPINE THORACIC 2 VW 2020-04-11 23:32:14 Marcela Negrete [facility] URINALYSIS 2020-04-11 23:12:00 Ghislaine Negrete [facility] POCT TEST 2020-04-11 23:10:00 Surekha Negrete [facility] NOTICE OF PRIVACY PRACTICES 2020-04-11 22:38:11 Doctor Unassigned, [place] [facility] Encounters Start Date/Time End Date/Time Encounter Type Admission Type Attending [facility] Care Facility Care Department Encounter ID Source 2021-06-11 14:49:41 Emergency [facility] [id number] [facility] 2023-08-17 09:47:53 2023-08-17 09:47:53 Outpatient [facility] [id number] Vik Cartagena 2021-06-23 00:28:00 2021-06-23 01:45:00 Emergency X ANI HEAD [facility] ERT [id number] [facility] 2021-06-23 00:28:00 2021-06-23 01:45:00 Emergency Ani Head [facility] [id number] [facility] 2021-06-23 00:00:00 2021-06-23 00:00:00 Orders Only Doctor Unassigned, [place] [facility] [id number] [facility] 2021-06-22 00:00:00 2021-06-22 00:00:00 Nurse Triage Madeleine Borges [facility] [id number] [facility] 2020-04-11 17:46:00 2020-04-11 19:23:00 Emergency NegreteGhislaine hunter [facility] [id number] [facility] Results Test Description Test Time Test Comments Results Result Co mments Source [id number] 23:10:00* Test Item Value Reference Range Interpretation Comme nts POCT PREG (test code = 1605) negative On board controls acceptable with C Line (test code = 3574) present POCT PREG LOT # (test code = 3575) [id number] POCT PREG TEST DATE ( test code = 3576) Lab Interpretation (test cod e = 07408-4) Normal [facility]
[2025-05-31] MEDS ORDERED: ONDANSETRON 4 MG/2 ML VIAL ONE ×2 (03:43→05:50)
[2025-05-31] MEDS ORDERED: MAGNES/ALUMIN/SIMET 30ML UCUP ONE (03:44)
[2025-05-31] MEDS ORDERED: HYDROMORPHONE HCL 0.5 MG/0.5 ML INJ ONE (03:45)
[2025-05-31 03:47] LABS: Absolute Lymphocytes (CBC) 3.5 K/uL (0.7-4.9); Hematocrit 43.6 % (36.0-45.0); Hemoglobin 14.8 g/dL (12.0-15.0); MCH 31.0 pg (27.0-35.0); MCHC 34.0 g/dL (32.0-36.0); MCV 91.4 fL (80-100); MPV 8.3 fL (7.6-11.3); Nucleated RBC Absolute Count 0.0 (0-0); Nucleated Red Blood Cells % 0.0 % (0-0); RBC Red Blood Cell Count 4.77 M/uL (3.86-4.86); White Blood Count 12.30 thou/uL (4.3-10.9)
[2025-05-31 04:07] LABS: ALT/SGPT 31.0 U/L (13-56); AST/SGOT 12.0 U/L (15-37); Albumin 3.7 g/dL (3.4-5.0); Albumin/Globulin Ratio 1.1 (1.1-1.8); Alkaline Phosphatase 82.0 U/L (45-117); Anion Gap 9.4 mEq/L (5.0-15.0); BUN Blood Urea Nitrogen 6.0 mg/dL (7-18); Globulin 3.5 g/dL (2.3-3.5); Glucose Level 111.0 mg/dL (74-106); Lipase 30.0 U/L (13-75); Potassium 3.4 mEq/L (3.5-5.1)
[2025-05-31] MEDS ORDERED: NA CHLORIDE 0.9% 50 ML ONE (05:50)
--- NOTE | 2025-05-31 06:50 | RAD REPORT ---
EXAM: CT Abdomen and Pelvis With Intravenous Contrast CLINICAL HISTORY: The patient is 35 years old and is Female; ABD PAIN TECHNIQUE: Axial computed tomography images of the abdomen and pelvis with intravenous contrast. Sagittal and coronal reformatted images were created and reviewed. This CT exam was performed using one or more of the following dose reduction techniques: automated exposure control, adjustmen t of the mA and/or kV according to patient size, and/or use of iterative reconstruction technique. COMPARISON: No relevant prior studies available. FINDINGS: Lung bases: Unremarkable. No mass. No consolidation. ABDOMEN: Liver: Hepatomegaly. Gallbladder and bile ducts: Unremarkable. No calcified stones. No ductal dilation. Pancreas: Unremarkable. No mass. No ductal dilation. Spleen: Unremarkable. No splenomegaly. Adrenals: Unremarkable. No mass. Kidneys and ureters: Unremarkable. No solid mass. No hydronephrosis. Stomach and bowel: Unremarkable. No obstruction. No mucosal thickening. PELVIS: Appendix: The appendix is normal. Bladder: Mild perivesicular stranding. Reproductive: IUD in the uterus. ABDOMEN and PELVIS: Intraperitoneal space: Unremarkable. No free air. No significant fluid collection. Bones/joints: No acute fracture. No dislocation. Soft tissues: Unremarkable. Vasculature: Unremarkable. No abdominal aortic aneurysm. Lymph nodes: Unremarkable. No enlarged lymph nodes. IMPRESSION: 1. Hepatomegaly. 2. Mild perivesicular stranding. Correlate with any concern for cystitis. 3. The appendix is normal. Electronically signed by: Wil Guerrero MD 05/31/2025 06:46 AM [facility] 8 Due to temporary technical issues with the PACS/[facility] reporting system, reports are being gordo d by the in-house radiologist without review as a courtesy to ensure prompt reporting the interpreting radiologist is fully responsible for the content of the report. Transcribed Date/Time: 05/31/2025 6:49 AM
--- NOTE | 2025-05-31 07:00 | ER ---
Nurse's Notes [facility] Name: Teressa Lopez Age: 35 yrs Sex: Female : 1990 Arrival Date: 05/31/2025 Time: 02:51 Bed 7 Private MD: Diagnosis: Pyelonephritis acute;Nausea with vomiting, unspecified Presentation: 05/31 03:00 Chief complaint: Patient states: LEFT UPPER QUADRANT ABDOMINAL PAIN AND NAUSEA FOR A ha1 WEEK. 03:00 Coronavirus screen: Client denies travel out of the [place] in the last 14 days. Ebola ha1 Screen: No symptoms or risks identified at this time. Initial Sepsis Screen: Does the patient meet any 2 criteria? No. Patient's initial sepsis screen is negative. Does the patient have a suspected source of infection? No. Patient's initial sepsis screen is negative. Risk Assessment: Do you want to hurt yourself or someone else? Patient reports no desire to harm self or others. Onset of symptoms was May 31, 2025. 03:00 Method Of Arrival: Ambulatory ha1 03:00 Acuity: MARC 3 ha1 Triage Assessment: 03:16 General: Appears uncomfortable, Behavior is calm, cooperative. Pain: Complains of pain ha1 in left upper quadrant Pain currently is 10 out of 10 on a pain scale. Quality of pain is described as throbbing. Neuro: Level of Consciousness is awake, alert, obeys commands, Oriented to person, place, time, situation. Cardiovascular: Capillary refill < 3 seconds Patient's skin is warm and dry. Respiratory: Airway is patent Respiratory effort is even, unlabored, Respiratory pattern is regular, symmetrical. GI: Abdomen is round obese, Reports upper abdominal pain, nausea. 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 - Infectious Disease History:: Denies. - Social history:: Smoking status: Patient reports the use of cigarette tobacco products, smokes one pack cigarettes per day. Screenin:10 [facility] ED Fall Risk Assessment (Adult) History of falling in the last 3 months, vc1 including since admission No falls in past 3 months (0 pts) Confusion or Disorientation No (0 pts) Intoxicated or Sedated No (0 pts) Impaired Gait No (0 pts) Mobility Assist Device Used No (0 pt) Altered Elimination No (0 pt) Score/Fall Risk Level 0 - 2 = Low Risk Oriented to surroundings, Maintained a safe environment, Educated pt \T\ family on fall prevention, incl call for assistance when getting out of bed, Assessed \T\ reinforced patient's understanding of fall precautions, Hourly rounding (assess needs \T\ fall precautionary measures) done. Abuse screen: Denies threats or abuse. Nutritional screening: No deficits noted. Tuberculosis screening: No symptoms or risk factors identified. Assessment: 03:10 General: Appears in no apparent distress. uncomfortable, well groomed, well developed, vc1 well nourished, Behavior is calm, cooperative, appropriate for age. Pain: Complains of pain in left upper quadrant Pain does not radiate. Pain Quality of pain is described as crampy, Pain began a week Also complains of nausea. Neuro: Level of Consciousness is awake, alert, obeys commands, Oriented to person, place, time, situation, Appropriate for age. Cardiovascular: Heart tones S1 S2 present Capillary refill < 3 seconds Patient's skin is warm and dry. Respiratory: Airway is patent Respiratory effort is even, unlabored, Respiratory pattern is regular, symmetrical, Breath sounds are clear bilaterally. GI: Abdomen is round Bowel sounds present X 4 quads. Abdomen is tender to palpation in left upper quadrant Reports upper abdominal pain, bloating, nausea, normal bowel habits. : No deficits noted. No signs and/or symptoms were reported regarding the genitourinary system. EENT: No deficits noted. No signs and/or symptoms were reported regarding the EENT system. Derm: Skin is intact, is healthy with good turgor, Skin is dry, Skin is normal, Skin temperature is warm. Musculoskeletal: Circulation, motion, and sensation intact. Range of motion: intact in all extremities. 06:00 Reassessment: Patient appears in no apparent distress at this time. No changes from vc1 previously documented assessment. Patient and/or family updated on plan of care and expected duration. Pain level reassessed. Patient is alert, oriented x 3, equal unlabored respirations, skin warm/dry/pink. 07:01 Reassessment: Patient appears in no apparent distress at this time. Patient and/or vc1 family updated on plan of care and expected duration. Pain level reassessed. Patient is alert, oriented x 3, equal unlabored respirations, skin warm/dry/pink. Patient states symptoms have improved. Vital Signs: 03:00 BP 134 / 101; Pulse 81; Resp 18 S; Temp 97.7(O); Pulse Ox 100% on R/A; Weight 97.52 kg; ha1 Height 5 ft. 7 in. ; Pain 9/10; 06:00 BP 130 / 98; Pulse 84; Resp 18; Pulse Ox 99% ; vc1 07:14 BP 128 / 96; Pulse 80; Resp 16; Pulse Ox 100% ; vc1 03:00 Body Mass Index 33.67 (97.52 kg, 170.18 cm) ha1 03:00 Pain Scale: Adult ha ED Course: 03:05 Patient arrived in ED. gm2 03:09 Toby Hawkins DO is Attending Physician. tt7 03:10 Arm band placed on right wrist. vc1 03:10 Patient has correct armband on for positive identification. Bed in low position. Call vc1 light in reach. Provided Education on: plan of care. 03:16 Triage completed. ha1 03:41 Cely Dutta, RN is Primary Nurse. vc1 03:41 Inserted saline lock: 20 gauge in right antecubital area, using aseptic technique. vc1 03:41 Test, Serum Sent. vc1 03:41 CBC with Diff Sent. vc1 03:41 CMP Sent. vc1 03:41 Lipase Sent. vc1 04:26 CT Abd/Pelvis - IV Contrast Only In Process Unspecified. EDMS 07:14 No provider procedures requiring assistance completed. IV discontinued, intact, vc1 bleeding controlled, No redness/swelling at site. Pressure dressing applied. Administered Medications: 03:44 Not Given (Physician Discretion): morphineor iv 4 mg IVP once over 4 mins tt7 04:01 Drug: Alum-Mag Hydroxide-Simeth PO Suspension (200 mg-200 mg-20 mg/5 mL) 30 ml PO once vc1 Route: PO; 05:47 Follow up: Response: No adverse reaction vc1 04:01 Drug: HYDROmorphone IVP 0.5 mg IVP once Route: IVP; Site: right antecubital; vc1 04:15 Follow up: Response: No adverse reaction; Marked relief of symptoms vc1 04:02 Drug: Ondansetron IVP 4 mg IVP once; over 2 minutes Route: IVP; Site: right antecubital;vc1 05:47 Follow up: Response: No adverse reaction vc1 06:01 Drug: Ondansetron IVP 4 mg IVP once; over 2 minutes Route: IVP; Site: right antecubital;vc1 07:01 Follow up: Response: No adverse reaction; Marked relief of symptoms vc1 06:01 Drug: Droperidol IVP 0.625 mg IVP once Route: IVP; Site: right antecubital; vc1 07:01 Follow up: Response: No adverse reaction; Marked relief of symptoms vc1 07:14 Drug: Rocephin IV 1 grams IV at bolus once; Given slow IV push per pharmacy vc1 instructions Route: IV; Rate: bolus; Site: right antecubital; 07:14 Follow up: IV Status: Completed infusion; IV Intake: 10ml vc1 Medication: 04:10 VIS not applicable for this client. vc1 Intake: 07:14 IV: 10ml; Total: 10ml. vc1 Outcome: 07:00 Discharge ordered by . tt7 07:14 Discharged to home ambulatory, with significant other, vc1 07:14 Condition: stable 07:14 Discharge instructions given to patient, Instructed on discharge instructions, follow up and referral plans. Demonstrated understanding of instructions, follow-up care, medications, Prescriptions given X 2, 07:15 Patient left the ED. vc1 Signatures: Dispatcher [employer] EDMS Cely Dutta RN RN vc1 Terese Salinas RN RN ha1 Mitchell, Ginger 2 Toby Hawkins DO DO tt7
--- NOTE | 2025-05-31 07:00 | EDPHYS ---
Physician Documentation [facility] Name: Teressa Lopez Age: 35 yrs Sex: Female : 1990 Arrival Date: 05/31/2025 Time: 02:51 Bed 7 Private MD: ED Physician Toby Hawkins HPI: 05/31 05:56 This 35 yrs old Female presents to ER via Ambulatory with complaints of Abdominal Pain, tt7 Nausea/Vomiting. 05:56 Patient has been having left upper quadrant abdominal pain that is gradually been tt7 worsening over the past 1 week, initially when she first started having the pain she was having multiple episodes of nonbloody nonbilious vomiting, over the past few days she has had nausea but no more vomiting, past medical history includes anxiety. 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 - Infectious Disease History:: Denies. - Social history:: Smoking status: Patient reports the use of cigarette tobacco products, smokes one pack cigarettes per day. ROS: 05:54 Constitutional: negative for fever. Cardiovascular: negative for chest pain. tt7 Respiratory: negative for shortness of breath. MS/Extremity: negative for injury and deformity. Skin: negative for rash. Neuro: negative for focal weakness. 05:54 Abdomen/GI: Positive for abdominal pain, nausea and vomiting, Exam: 05:54 Constitutional: vital signs reviewed, well appearing. Head/Face: normocephalic, tt7 atraumatic. Eyes: no conjunctival injection, anicteric sclerae. ENT: mucus membranes moist. Neck: trachea midline, no JVD, no meningismus. Chest/axilla: normal chest wall appearance and motion, nontender, no crepitus. Cardiovascular: regular rate and rhythm, no murmurs, no rubs, no lower extremity edema. Respiratory: normal respiratory effort, no accessory muscle use, lungs CTAB. Abdomen/GI: soft, nondistended, moderate left upper quadrant tenderness, no guarding or rebound, negative Park's sign, no McBurney point tenderness. Back: normal ROM. Skin: warm, dry, intact, normal turgor, normal color, no rash. MS/ Extremity: normal ROM of extremities, no gross deformities. Neuro: alert and oriented with appropriate mental status, normal speech, follows commands, no focal neurologic deficits. Psych: appropriate mood and affect. Vital Signs: 03:00 BP 134 / 101; Pulse 81; Resp 18 S; Temp 97.7(O); Pulse Ox 100% on R/A; Weight 97.52 kg; ha1 Height 5 ft. 7 in. ; Pain 9/10; 06:00 BP 130 / 98; Pulse 84; Resp 18; Pulse Ox 99% ; vc1 07:14 BP 128 / 96; Pulse 80; Resp 16; Pulse Ox 100% ; vc1 03:00 Body Mass Index 33.67 (97.52 kg, 170.18 cm) ha1 03:00 Pain Scale: Adult ha1 MDM: 03:09 Medical Screening Exam initiated tt7 05:55 Differential diagnosis: Nonspecific abd pain, gastritis, pancreatitis, appendicitis, tt7 diverticulitis. Data reviewed: vital signs, nurses notes, lab test result(s), radiologic studies. ED course: Patient is well-appearing with stable vital signs, physical exam positive for some left upper quadrant abdominal tenderness but no peritoneal signs, standard laboratory studies ordered including lipase and CT imaging of the abdomen/pelvis ordered, patient's symptoms treated with IV opioid and antiemetic. 07:02 ED course: I reassessed the patient, feels significantly improved, able to tolerate tt7 oral intake in the emergency department, CT findings show some perivesicular stranding, this finding along with the constellation of her symptoms is consistent with pyelonephritis, will treat with IV ceftriaxone here in the emergency department and discharged with as needed Zofran and course of cefdinir, return precautions discussed, I requested that the patient provide us with a urine sample so that I can be cultured for speciation and specificity prior to leaving the emergency department, after completion of the patient's emergency department evaluation, I do not suspect a life-threatening or disabling process. Patient is medically stable and not in need of emergent medical intervention. I had a detailed discussion with the patient regarding the historical points, exam findings, emergency department evaluation, diagnostic results, and the discharge diagnosis. I instructed the patient on outpatient management of their condition. I discussed the need for outpatient follow-up with a primary care physician. I informed the patient on return precautions, including the need to return to the ED if symptoms do not improve, worsen, or if there are any questions or concerns that arise at home. The patient was discharged in stable condition. 05/31 03:09 Order name: CBC with Diff; Complete Time: 04:16 tt7 05/31 03:09 Order name: CMP; Complete Time: 04:16 tt7 05/31 03:09 Order name: Lipase; Complete Time: 04:16 tt7 05/31 03:09 Order name: Test, Serum; Complete Time: 04:16 tt7 05/31 03:22 Order name: CT Abd/Pelvis - IV Contrast Only tt7 05/31 03:09 Order name: IV Saline Lock; Complete Time: 03:41 tt7 05/31 03:09 Order name: Labs collected and sent; Complete Time: 03:41 tt7 Administered Medications: 03:44 Not Given (Physician Discretion): morphineor iv 4 mg IVP once over 4 mins tt7 04:01 Drug: Alum-Mag Hydroxide-Simeth PO Suspension (200 mg-200 mg-20 mg/5 mL) 30 ml PO once vc1 Route: PO; 05:47 Follow up: Response: No adverse reaction vc1 04:01 Drug: HYDROmorphone IVP 0.5 mg IVP once Route: IVP; Site: right antecubital; vc1 04:15 Follow up: Response: No adverse reaction; Marked relief of symptoms vc1 04:02 Drug: Ondansetron IVP 4 mg IVP once; over 2 minutes Route: IVP; Site: right antecubital;vc1 05:47 Follow up: Response: No adverse reaction vc1 06:01 Drug: Ondansetron IVP 4 mg IVP once; over 2 minutes Route: IVP; Site: right antecubital;vc1 07:01 Follow up: Response: No adverse reaction; Marked relief of symptoms vc1 06:01 Drug: Droperidol IVP 0.625 mg IVP once Route: IVP; Site: right antecubital; vc1 07:01 Follow up: Response: No adverse reaction; Marked relief of symptoms vc1 07:14 Drug: Rocephin IV 1 grams IV at bolus once; Given slow IV push per pharmacy vc1 instructions Route: IV; Rate: bolus; Site: right antecubital; 07:14 Follow up: IV Status: Completed infusion; IV Intake: 10ml vc1 Disposition: 07:03 Co-signature as Attending Physician, Toby Hawkins DO. tt7 Disposition Summary: 05/31/25 07:00 Discharge Ordered Notes: Location: Home tt7 Problem: new tt7 Symptoms: have improved tt7 Condition: Stable tt7 Diagnosis - Pyelonephritis acute tt7 - Nausea with vomiting, unspecified tt7 Followup: tt7 - With: Emergency Department - When: As needed - Reason: Followup: tt7 - With: Private Physician - When: 1 - 2 days - Reason: Recheck today's complaints, Re-evaluation by your physician Discharge Instructions: - Discharge Summary Sheet tt7 - Pyelonephritis, Adult, [id number] tt7 Forms: - Medication Reconciliation Form tt7 - Antibiotic Education tt7 - Prescription Opioid Use tt7 - Patient Portal Instructions tt7 - Leadership Thank You Letter tt7 Prescriptions: - cefdinir 300 mg Oral capsule - take 1 capsule ORAL route every 12 hours for 10 days; 20 capsule; Refills: 0, tt7 Product Selection Permitted - ondansetron HCl 4 mg Oral tablet - take 1 tablet ORAL route 3 times per day As needed as needed for nausea and tt7 vomiting; 20 tablet; Refills: 0, Product Selection Permitted Signatures: Dispatcher [employer] EDMS Cely Dutta, RN RN vc1 Terese Salnias RN RN ha1 Toby Hawkins DO DO tt7 Corrections: (The following items were deleted from the chart) 03:22 03:22 Abdomen Pelvis W Con+CT.RAD.BRZ ordered. EDMS EDMS 06:57 06:57 UA Rfx Rolando Cult if indicated+U.LAB.BRZ ordered. EDMS EDMS
[2025-05-31] MEDS ORDERED: CEFTRIAXONE 1000 MG/VIAL ONE (07:03)
[2025-05-31 14:36] VITALS: TEMP 97.7
[2025-05-31 14:48] VITALS: BP 128/96; O2SAT 100
== END 2025-05-31 07:15 | disposition home or self-care (01) ==
LOC: ER 02:51
DX: N10 Acute pyelonephritis (principal); F17.210 Nicotine dependence, cigarettes, uncomplicated
CPT/HCPCS: 36415; 74177; 80053; 83690; 84703; 85025; 96374; 96375; 99284; J0696; J1171; J1790; J2405; Q9967